=== PATIENT | female | born 1945 | race Caucasian/White ===

== ENCOUNTER → 2016-08-10 10:48 | Outpatient (CLI) | payer MEDICARE, MEDICAID ==
[2016-05-31 15:03] VITALS: BMI 65.2
[~2016-08-10 10:48] MED LIST: ACETAMINOPHEN325 MG PO; ACETAMINOPHEN500 M1 PO; ALTACE10 MG PO; ASPIRIN81 MG PO; BETAPACE 80 MG80 MG PO; BUMEX2 MG PO; CARDIZEM CD240 MG PO; DIABETA5 MG PO; FEMARA2.5 MG PO; GLUCAGON1 MG/KIT IM; GLUCAGON1 MG/KIT SQ; GLUCOVANCE 5/501 TAB PO; HUMALOG 30100 UNITS/ SC; INDOCIN25 MG PO; INSTA-GLUCOSE31 GM PO; KLOR-CON 1010 MEQ PO; METFORMIN HCL500 M1 PO; NEURONTIN 300300 MG PO; NEXIUM40 MG PO; NIFEREX-150 F1 UDCAP PO; NOVOLOG MIX 70/10 ML SQ; PEPCID20 MG PO; PLAVIX75 MG PO; PRAVACHOL20 MG PO; PREDNISONE20 MG PO; PROTONIX40 MG PO; ULTRAM50 MG PO; ZANTAC150 MG PO; ZOFRAN4 MG PO
== END | disposition home or self-care (01) ==
LOC: D.RT 10:48
DX: J44.9 Chronic obstructive pulmonary disease, unspecified (principal)

== ENCOUNTER → 2016-08-11 19:21 | Outpatient (CLI) | payer MEDICARE, MEDICAID ==
[2016-05-31 15:03] VITALS: BMI 65.2
== END | disposition home or self-care (01) ==
LOC: D.SLEEP 19:21
DX: G47.33 Obstructive sleep apnea (adult) (pediatric) (principal)

== ENCOUNTER → 2016-08-30 19:05 | Outpatient (CLI) | payer MEDICARE, MEDICAID ==
[2016-05-31 15:03] VITALS: BMI 65.2
== END | disposition home or self-care (01) ==
LOC: D.SLEEP 19:05
DX: G47.33 Obstructive sleep apnea (adult) (pediatric) (principal)

== ENCOUNTER 2017-01-26 16:13 | Emergency (ER) | payer MEDICARE, MEDICAID ==
[2016-05-31 15:03] VITALS: BMI 65.2
[2017-01-26 18:18] LABS: APPEARANCE CLEAR (CLEAR); BILIRUBIN NEGATIVE (NEGATIVE); COLOR YELLOW (YELLOW); GLUCOSE 1000 mg/dL (NEGATIVE); KETONE NEGATIVE (NEGATIVE); NITRITE NEGATIVE (NEGATIVE); PROTEIN NEGATIVE (NEGATIVE); UROBILINOGEN NORMAL (NORMAL)
[2017-01-26 18:19] LABS: BACTERIA FEW /hpf (NONE SEEN); EPITHELIAL CELLS 0-5 /hpf (0-5); LEUKOCYTE ESTERASE TRACE (NEGATIVE); RED CELLS - URINE OCC /hpf (0-5); WHITE CELLS - URINE 0-5 /hpf (0-5)
[2017-01-26 18:25] LABS: BASOPHILS 0.5 % (0-2); HEMATOCRIT 37.2 % (36.0-48.0); IMMATURE GRANULOCYTES 0.2 % (0-5); MCH 28.2 pg (26.0-34.0); MCHC 32.3 g/dL (31.0-37.0); MCV 87.3 fL (80.0-100.0); MEAN PLATELET VOLUME 9.8 fL (7.4-10.4); MONOCYTES 8.5 % (2-11); NEUTROPHILS 64.8 % (40-80); RBC 4.26 10x6/uL (4.00-5.40); RDW 14.4 % (11.5-14.5); WBC 6.2 10x3/uL (4.8-10.8)
[2017-01-26 18:26] LABS: PLATELET COUNT 157 10x3/uL (130-400)
[2017-01-26 18:41] LABS: ALBUMIN 3.4 g/dL (3.4-5.0); ALKALINE PHOSPHATASE 116 U/L (46-116); ALT (SGPT) 39 U/L (10-68); BILIRUBIN - TOTAL 0.43 mg/dL (0.2-1.3); CARBON DIOXIDE 31.5 mmol/L (21.0-32.0); CHLORIDE - SERUM 97 mmol/L (98-107); CREATININE - SERUM 1.7 mg/dL (0.6-1.3); POTASSIUM - SERUM 3.9 mmol/L (3.5-5.1); PROTEIN - SERUM 7.9 g/dL (6.4-8.2); SODIUM 134 mmol/L (136-145); UREA NITROGEN 28 mg/dL (7-18); eGFR NON AFRICAN AMERICAN 32 mL/min (90-120)
[2017-01-26 18:50] LABS: CREATINE KINASE 81 UL (21-215); PRO BNP 839 pg/mL (0-125)
[2017-01-26 18:59] LABS: CALC OSMOLALITY 282 mosm/kg (275-300); GLUCOSE 252 mg/dL (74-106); TROPONIN-I < 0.017 ng/mL (0.000-0.060)
[2017-01-26 19:09] LABS: INR 1.1 (0.85-1.17)
[2017-01-26 19:10] LABS: APTT 29.1 SECONDS (22.8-39.4)
== END 2017-01-26 21:00 | disposition home or self-care (01) ==
LOC: D.ER 16:13
PROVIDERS: Emergency Medicine; Physician Assistant Medical
DX: K21.9 Gastro-esophageal reflux disease without esophagitis (principal); J44.9 Chronic obstructive pulmonary disease, unspecified; E11.9 Type 2 diabetes mellitus without complications; Z79.4 Long term (current) use of insulin; E66.01 Morbid (severe) obesity due to excess calories; Z99.81 Dependence on supplemental oxygen

== ENCOUNTER 2017-03-18 09:00 | Outpatient (CLI) | payer MEDICARE, MEDICAID ==
[2016-05-31 15:03] VITALS: BMI 65.2
== END 2017-03-18 23:59 | disposition home or self-care (01) ==
LOC: D.MAMMO 09:00
DX: Z12.31 Encounter for screening mammogram for malignant neoplasm of breast (principal)

== ENCOUNTER → 2017-05-17 09:04 | Outpatient (CLI) | payer MEDICARE, MEDICAID ==
[2016-05-31 15:03] VITALS: BMI 65.2
== END | disposition home or self-care (01) ==
LOC: D.US 09:04
DX: R22.9 Localized swelling, mass and lump, unspecified (principal)

== ENCOUNTER → 2017-07-25 16:39 | Outpatient (CLI) | payer MEDICARE, MEDICAID ==
[2016-05-31 15:03] VITALS: BMI 65.2
== END | disposition home or self-care (01) ==
LOC: D.MAMMO 13:30
DX: R59.0 Localized enlarged lymph nodes (principal); N64.4 Mastodynia; Z85.3 Personal history of malignant neoplasm of breast

== ENCOUNTER 2018-02-01 09:17 | Outpatient (CLI) | payer MEDICARE, MEDICAID ==
[~2018-02-01] VITALS: Ht 154.9 cm; Wt 136.4 kg
--- NOTE | ~2018-02-01 | OP ---
PATIENT NAME: HUMA FIELDS MEDICAL RECORD: [id number] :49 LOCATION:D.CAT ADMISSION DATE: SURGEON: RICK SQUIRES MD DATE OF OPERATION: 02/01/2018 PROCEDURES: 1. Left heart catheterization. 2. Selective coronary angiography. 3. Left ventriculogram. INDICATION: Chest pain compatible with angina and coronary artery disease. PROCEDURE IN DETAIL: After informed consent was obtained and after a detailed description of the risks, benefits as well as alternative therapies, the patient elected to proceed with angiogram and heart catheterization. The right radial area was prepped and draped in normal sterile fashion. Right radial artery was cannulated via modified Seldinger technique with placement of 5-Tuvaluan sheath. All catheters exchanged through this sheath. FINDINGS: The left ventriculogram was performed in standard 30-degree CHILDS view, reveals good cardiac wall motion throughout all segments. Overall ejection fraction estimated 60%. SELECTIVE CORONARY ANGIOGRAPHY: 1. Left main is with no significant angiographic disease. 2. Left anterior descending has moderate irregularities, but no flow-limiting stenosis. 3. The left circumflex has moderate irregularities, but no flow-limiting stenosis. 4. Right coronary artery is chronically totally occluded, unchanged from previous angiography. Distal right coronary artery fills via left to right collaterals. 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 Continue medical management of the coronary artery disease and cardiac risk factors. TRANSINT:[id number] Voice Confirmation ID: [id number] DOCUMENT ID: [id number] RICK SQUIRES MD at 1642 CC: [id number] DICTATION DATE: 02/01/18 1243 ALTERATIONS EXPERT: 02/01/18 1258 DEP CLI 02/01/18 [place] [address]
--- NOTE | ~2018-02-01 | HEMODYNAMI ---
PATIENT:HUMA FIELDS MEDICAL RECORD: [id number] : 49 LOCATION:[facility] ADMISSION DATE: 02/01/18 Generatedon:02/01/201812:47 Patient name: HUMA FIELDS Patient #: [id number] SSN: : Date of study: 02/01/2018 Page: Of Hemodynamic Procedure Report Patient Data Patient Demographics Procedure consent was obtained First Name: HUMA Gender: Female Last Name: DIAMOND : 1945 [facility] Initial: COLETTE Age: 73 year(s) Patient #: [id number] Race: Unknown Additional ID: [id number] Contact details Address: [address] [place] [address] ROAD State: [place] City: [place] Zip code: [address] Past Medical History Allergies Allergen Reaction Date Comments Reported Iodine 10/01/2015 Other allergy 10/01/2015 Hydrocodone, Phenergan Iodine 06/02/2016 Other allergy 06/02/2016 Promethazine HCL, Hydrocodone Other allergy 02/01/2018 IODINE, NOR-QD, TEGRETOL, XARELTO Admission Admission Data Admission Date: 02/01/2018 Admission Time: 9:17 Height (in.): 5.1 BSA: 0.37 (m2) Height (cm.): 12.95 BMI: 8109.22 (kg/m2) Weight (lbs.): 300 Weight (kg.): 136.08 Lab Results Lab Result Date: 02/01/2018 Lab Result Time: 0:00 Biochemistry Name Units Result Min Max BUN mg/dl 26 --(----)-* 7 18 Creatinine mg/dl 1.7 --(----)-* 0.6 1.3 CBC Name Units Result Min Max Hemoglobin g/dl 12.6 -*(----)-- 13.5 17.5 Procedure Procedure Types Cath Procedure Diagnostic Procedure LHC LHC w/Coronaries Cardioversion External MURALI Sedation Charges Moderate Sedation up to 30 minutes Procedure Description Procedure Date Procedure Date: 02/01/2018 Procedure Start Time: 12:33 Procedure End Time: 12:43 Procedure Staff Name Function Marcial Calderon MD Performing Physician Gisselle Rangel RT Monitor Sonia Waddell RT Scrub Sinan Cook RN Nurse Max Silver MD Additional personnel Collette Sanchez Associate Director Of Biostatistics Procedure Data Cath Procedure Fluoroscopy Diagnostic fluoroscopy Total fluoroscopy Time: 2.9 time: 2.9 min min Diagnostic fluoroscopy Total fluoroscopy dose: dose: 1008 mGy 1008 mGy Contrast Material Contrast Material Type Amount (ml) Isovue 300 43 Entry Location Entry Primary Successful Side Size Upsize Upsize Entry Closure Bui ccessful Closure Location (Fr) 1 (Fr) 2 (Fr) Remarks Device Remarks Radial Right 6 Fr Mechanical TR artery Short Compression Estimated blood loss: 10 ml Diagnostic catheters Device Type Used For End Catheter Placement DIAGNOSTIC Crumpler 110cm 5 Procedure Fr catheter ([id number]) Procedure Complications No complications Procedure Medications Medication Administration Route Dosage Oxygen etCO2 Nasal cannula 2 l/min Lidocaine 2% added to field 20 Heparin Flush Bag added to field 2 bags (1000units/500ml NS) 0.9% NaCl I.V. 100 ml/hr unlisted medication 30 ml Versed I.V. 1 mg Fentanyl I.V. 50 mcg Radial Cocktail I.A. 1 syringe (Verapomil 2mg/Nitro 400mcg/Heparin 1500units) Versed I.V. 1 mg Fentanyl I.V. 50 mcg Versed I.V. 0.25 mg Fentanyl I.V. 12.5 mcg Hemodynamics Rest BSA: 0.37 (m2) HGB: 12.6 (g/dl) O2 Consumption: Estimated: 26.69 (ml/min) O2 Con sumption indexed: Estimated:72.14 (ml/min/m) Heart Rate: 18 (bpm) Snapshots Pre Cath Intra NCS Post Cath Vital Signs Time Heart Resp SPO2 etCO2 NIBP (mmHg) Rhythm Pain Sedation Rate (ipm) (%) (mmHg) Status Level (bpm) 12:03:21 67 21 95 40.7 176/79(133) NSR 0 (11) 10(A) , No pain 12:07:58 69 26 96 39.9 178/90(123) NSR 0 (11) 10(A) , No pain 12:12:26 68 23 87 38.4 152/84(128) NSR 0 (11) 10(A) , No pain 12:17:07 69 15 94 21 136/57(81) NSR 0 (11) 10(A) , No pain 12:28:25 69 22 96 36.9 217/119(165) NSR 0 (11) 10(A) , No pain 12:33:12 67 14 89 42.9 189/107(159) NSR 0 (11) 9(A) , No pain 12:37:48 70 18 90 39.1 165/83(124) NSR 0 (11) 9(A) , No pain 12:43:36 67 15 92 42.1 186/99(140) NSR 0 (11) 10(A) , No pain Medications Time Medication Route Dose Verified Delivered Reason Notes Effectiveness by by 12:02:06 Oxygen etCO2 2 l/min Marcial Buffie used for Nasal Yumiko Cook RN procedure cannula 12:02:12 Lidocaine 2% added 20ml Marcial Buffie used for to vial Yumiko Cook RN procedure field 12:02:18 Heparin Flush added 2 bags Marcial Buffie used for Bag to Yumiko Cook RN procedure (1000units/500ml field NS) 12:02:31 0.9% NaCl I.V. 100 Marcialradhames Crossie Per ml/hr Yumiko Cook RN physician 12:03:36 visc. lido gargle 30 ml Marcial Buffie Per Yumiko Cook RN physician 12:30:47 Versed I.V. 1 mg Marcial Menon for sedation Yumiko Cook RN 12:30:52 Fentanyl I.V. 50 mcg Marcial Menon for sedation Yumiko Cook RN 12:33:30 Versed I.V. 1 mg Marcial Buffie for sedation Yumiko Cook RN 12:33:34 Fentanyl I.V. 50 mcg Marcial Menon for sedation Yumiko Cook RN 12:37:16 Radial Cocktail I.A. 1 Marcial Ceja for (Verapomil syringe Yumiko Calderon MD vasodilation 2mg/Nitro 400mcg/Heparin 1500units) 12:39:05 Fentanyl I.V. 12.5 Marcial Menon for sedation mcg Yumiko Cook RN 12:39:58 Versed I.V. 0.25 mg Marcial Buffie for sedation Yumiko Cook RN Procedure Log Time Note 11:48:39 Sinan Cook RN sent for patient. Start room use. 11:48:40 Time tracking: Regular hours (M-F 7:00 - 5:00) 11:48:44 Plan of Care:Hemodynamics will remain stable., Cardiac rhythm will remain stable., Comfort level will be maintained., Respiratory function will remain adequate., Patient/ family verbilizes understanding of procedure., Procedure tolerated without complication., Recovers from procedure without complications.. 11:48:46 Signed procedure consent form obtained from patient. 11:49:32 H&P Date Dictated: 01/26/2018 Within 30 days and on chart., H&P Addendum completed by physician on day of procedure. (MUST COMPLETE FOR ALL OUTPATIENTS). 11:49:55 Patient allergic to Other allergyIODINE, NOR-QD, TEGRETOL, XARELTO 11:50:04 Patient Height : 5.1 inches 11:50:08 Patient Weight : 300 lbs 11:53:48 Lab Result : BUN 26 mg/dl 11:53:48 Lab Result : Hemoglobin 12.6 g/dl 11:53:48 Lab Result : Creatinine 1.7 mg/dl 11:55:10 Patient arrived from Pre/Post Procedure Room to [facility] 2. Patient remains on bed/stretcher for procedure. 11:55:12 Warm blankets applied, and jose elias hugger turned on for patient comfort. 11:55:12 Correct patient and procedure confirmed by team. 11:55:12 ECG and BP/O2 sat monitors applied to patient. 12:01:49 Vital chart was started 12:02:06 Oxygen 2 l/min etCO2 Nasal cannula was administered by Sinan Cook RN; used for procedure; 12:02:12 Lidocaine 2% 20ml vial added to field was administered by Sinan Cook RN; used for procedure; 12:02:18 Heparin Flush Bag (1000units/500ml NS) 2 bags added to field was administered by Sinan Cook RN; used for procedure; 12:02:31 0.9% NaCl 100 ml/hr I.V. was administered by Sinan Cook RN; Per physician; 12:03:36 visc. lido 30 ml gargle was administered by Sinan Cook RN; Per physician; 12:04:40 Baseline sample Acquired. 12:04:46 Rhythm: atrial fibrillation 12:04:51 Full Disclosure recording started 12:04:51 Pre-procedure instructions explained to patient. 12:04:52 Pre-op teaching completed and patient verbalized understanding. 12:04:53 Family in patients room. 12:04:55 Patient NPO since Midnight. 12:04:56 Is the patient allergic to Iodine/contrast media? Yes. 12:04:58 Was the patient premedicated? Yes 12:04:59 Is patient on blood thinner?No 12:05:00 Patient diabetic? Yes. 12:05:02 If diabetic: On Metformin? No 12:05:06 Patient not . Patient is over age 55. 12:05:09 Previous problem with sedation/anesthesia? No ? 12:05:10 Snore? Yes 12:05:11 Sleep apnea? Yes 12:05:12 Deviated septum? No 12:05:13 Opens mouth fully? Yes 12:05:14 Sticks out tongue? Yes 12:05:16 Airway obstruction? Yes COPD 12:05:21 Dentures? Yes OUT 12:05:24 Modified Nico's test Ulnar < 7 seconds 12:05:26 Patient pain scale 0/10 ?. 12:05:31 IV patent on arrival in left hand with 0.9% NaCl at O. 12:05:33 Lab results completed and on chart. 12:05:58 Max Silver MD present and monitoring patient for TIVA. 12:06:01 Collette Daniel Refrigerated Cargo Clerk present for MURALI. 12:06:10 Quick Combo opened to sterile field. 12:13:51 --------ALL STOP TIME OUT------ 12:13:52 Final Timeout: patient, procedure, and site verified with staff and physician. All members of the team are in agreement. 12:13:59 Physical assessment completed. ASA score P 2 - A patient with mild systemic disease as per Marcial Calderon MD. 12:14:03 Sedation plan: TIVA Medication:Propofol 12:14:24 Procedure started. 12:15:30 PT. IN SINUS RYTHM WITH PACS 12:15:46 WILL MOVE PATIENT TO BED AND PREP FOR CATH 12:30:47 Versed 1 mg I.V. was administered by Sinan Cook RN; for sedation; 12:30:52 Fentanyl 50 mcg I.V. was administered by Sinan Cook RN; for sedation; 12:31:07 Use device set Radial Dx or PCI 12:31:08 ACIST Syringe (29038) opened to sterile field. 12:31:08 Medline Cath Pack ([id number]) opened to sterile field. 12:31:09 Bag Decanter (2002S) opened to sterile field. 12:31:09 DIAGNOSTIC WIRE .035 260cm J wire (345583) opened to sterile field. 12:31:10 ACIST Hand Control (58959) opened to sterile field. 12:31:10 ACIST Manifold (91186) opened to sterile field. 12:31:11 Tegaderm 4 x 4 (1626W) opened to sterile field. 12:31:12 MBrace Wrist Support ([id number]) opened to sterile field. 12:31:13 NEEDLE Cook 21G 4cm Radial (F69889) opened to sterile field. 12:31:14 TR BAND Large (NAP32TUC) opened to sterile field. 12:31:16 SHEATH 6Fr Prelude Radial ([id number]) opened to sterile field. 12:33:30 Versed 1 mg I.V. was administered by Sinan Cook RN; for sedation; 12:33:34 Fentanyl 50 mcg I.V. was administered by Sinan Cook RN; for sedation; 12:33:34 Local anesthetic to right radial artery with Lidocaine 2% by Marcial Calderon MD.INITIAL ACCESS ONLY 12:34:37 Zero performed for pressure channel P1 12:34:56 A 6 Fr Short sheath was inserted into the Right Radial artery 12:36:39 j wire advanced. 12:36:50 A DIAGNOSTIC Crumpler 110cm 5 Fr catheter (866149) was advanced over the wire and used for Procedure. 12:37:16 Radial Cocktail (Verapomil 2mg/Nitro 400mcg/Heparin 1500units) 1 syringe I.A. was administered by Marcial Calderon MD; for vasodilation; 12:38:30 RCA angiography performed. 12:38:38 Catheter removed. 12:39:05 Fentanyl 12.5 mcg I.V. was administered by Sinan Cook RN; for sedation; 12:39:11 GUIDE 6FR XBLAD 3.5 catheter ([id number]) opened to sterile field. 12:39:33 LCA angiography performed. 12:39:58 Versed 0.25 mg I.V. was administered by Sinan Cook RN; for sedation; 12:40:40 Catheter removed. 12:41:14 TR BAND Standard ([id number]) opened to sterile field. 12:41:38 Sheath removed intact; hemostasis achieved with Mechanical Compression to the Right Radial artery. 12:41:41 Procedure ended.(Physican Out) 12:42:06 Fluoroscopy time 02.90 minutes. 12:42:10 Fluoroscopy dose: 1008 mGy 12:42:10 Flurop Dose total: 1008 12:42:14 Contrast amount:Isovue 300 43ml. 12:42:15 Sharps counted by scrub and verified by R.N. 12:42:18 TR band inflated with 12cc of air. 12:42:19 Insertion/operative site no bleeding no hematoma. 12:42:27 Post Procedure Pulses reassessed and unchanged 12:42:32 Post-procedure physical assessment completed. ASA score P 3 - A patient with severe systemic disease as per Marcial Calderon MD. 12:42:35 Post procedure rhythm: sinus rhythm 12:42:39 Estimated blood loss: 10 ml 12:42:41 Post procedure instruction explained to patient.Patient verbalizes understanding. 12:43:11 Procedure type changed to Cath procedure, Diagnostic procedure, LHC, LHC w/Coronaries, Cardioversion External, MURALI, Sedation Charges, Moderate Sedation up to 30 minutes 12:43:13 Procedure and supply charges have been captured, reviewed, submitted and are correct. 12:43:42 Procedure Complication : No complications 12:43:45 Vital chart was stopped 12:43:45 See physician's report for complete and final results. 12:43:48 Report given to Pre/Post Procedure Room. 12:43:51 Patient transfered to Pre/Post Procedure Room with Stretcher. 12:43:53 Procedure ended. 12:43:53 Full Disclosure recording stopped 12:43:57 End room use (Document Last) Device Usage Item Name Manufacture Quantity Catalog Number Hospital Part Current M inimal Lot# / Charge Number Stock Stock Serial# Code Quick Conkwesto ProspectNow Systems 1 [id number] 809138 499041 181767 5 ACIST Syringe Acist 1 14432 843419 698216 595304 2 0 (72862) Responsible City Medline Cath Cardinal 1 [id number] 859530 61443 345092 5 Pack Health ([id number]) Bag Decanter Microtek 1 2001S 235819 95827 085125 5 (2001S) Medical Inc. DIAGNOSTIC WIRE [place] 1 647818 073125 749216 848334 3 0 .035 260cm J wire (533572) ACIST Hand Acist 1 40930 323899 310457 812551 5 Control (36441) Medical Systems Inc ACIST Manifold Acist 1 78700 478458 235208 773652 5 (94324) Medical Systems Inc Tegaderm 4 x 4 3M 1 1626W 202374 133383 526137 5 (1626W) MBrace Wrist Advanced 1 140-0250-00 783124 78920 813737 5 Support Vascular ([id number]) Dynamics NEEDLE Cook 21G Cook Medical 1 Z63693 137871 541017 062337 5 4cm Radial (O39833) TR BAND Large Terumo 1 XKT30-SJZ 785811 515466 805285 4 0 ([id number]) SHEATH 6Fr Merit 1 [id number] 115392 057023 389114 5 Prelude Radial Medical ([id number]) DIAGNOSTIC Terumo 1 40-0453 110230 083435 841733 5 Crumpler 110cm 5 Fr catheter (355981) GUIDE 6FR XBLAD Cardinal 1 13378480 468911 965639 879778 1 0 3.5 catheter Health ([id number]) TR BAND Terumo 1 OFL58-WLH 014906 986910 942773 4 0 Standard ([id number]) Signature Audit Bentley Stage Time Signature Unsigned Intra-Procedure 02/01/2018 Gisselle Rangel 12:47:49 PM RT(R) Signatures Monitor : Gisselle Rangel Signature : RT Date : Time : [facility] [address] [place] [address]
[2018-02-01] MEDS ORDERED: JARDIANCE25 MG PO (10:01)
[2018-02-01] MEDS ORDERED: GLUCOTROL XL 1010 MG PO (10:02)
[2018-02-01] MEDS ORDERED: CELEXA10 MG PO (10:02)
[2018-02-01] MEDS ORDERED: VALIUM5 MG PO (10:04)
[2018-02-01] MEDS ORDERED: BREO ELLIPTA 21 EACH (10:04)
[2018-02-01 10:05] VITALS: BP 153/82; Ht 154.9 cm; Wt 136.4 kg
[2018-02-01 10:17] LABS: BASOPHILS 0.2 % (0-2); EOSINOPHILS 0 % (0-7); HEMATOCRIT 38.5 % (36.0-48.0); HEMOGLOBIN 12.6 g/dL (12-16); IMMATURE GRANULOCYTES 0.2 % (0-5); LYMPHOCYTES 15.2 % (15-50); MCHC 32.7 g/dL (31.0-37.0); MCV 88.7 fL (80.0-100.0); MEAN PLATELET VOLUME 10.4 fL (7.4-10.4); MONOCYTES 3.4 % (2-11); PLATELET COUNT 148 10x3/uL (130-400); RBC 4.34 10x6/uL (4.00-5.40); RDW 14.1 % (11.5-14.5); WBC 5.1 10x3/uL (4.8-10.8)
[2018-02-01 11:01] LABS: ANION GAP 12.1 mmol/L (8-16); CALCIUM 9.2 mg/dL (8.5-10.1); CARBON DIOXIDE 31.2 mmol/L (21.0-32.0); CREATININE - SERUM 1.7 mg/dL (0.6-1.3); POTASSIUM - SERUM 4.3 mmol/L (3.5-5.1)
== END 2018-02-01 15:22 | disposition home or self-care (01) ==
LOC: D.CATH 09:17
PROVIDERS: Internal Medicine Interventional Cardiology
DX: I25.110 Atherosclerotic heart disease of native coronary artery with unstable angina pectoris (principal)

== ENCOUNTER 2018-06-16 20:47 | Inpatient (IN) | payer MEDICARE, MEDICAID ==
[~2018-06-16] VITALS: Ht 154.9 cm; Wt 135.3 kg
[~2018-06-16 20:47] MED LIST changes: +BREO ELLIPTA 21 EACH; +CELEXA10 MG PO; +GLUCOTROL XL 1010 MG PO; +JARDIANCE25 MG PO; +VALIUM5 MG PO
[2018-06-16 21:24] LABS: BASOPHILS 0.1 % (0-2); EOSINOPHILS 0.1 % (0-7); HEMATOCRIT 38.3 % (36.0-48.0); HEMOGLOBIN 12.4 g/dL (12-16); IMMATURE GRANULOCYTES 0.5 % (0-5); MCH 28.8 pg (26.0-34.0); MCHC 32.4 g/dL (31.0-37.0); MCV 88.9 fL (80.0-100.0); MEAN PLATELET VOLUME 10.7 fL (7.4-10.4); MONOCYTES 3.1 % (2-11); NEUTROPHILS 92.2 % (40-80); RBC 4.31 10x6/uL (4.00-5.40); RDW 14.4 % (11.5-14.5); WBC 7.4 10x3/uL (4.8-10.8)
[2018-06-16 21:29] LABS: APTT 27.8 SECONDS (22.8-39.4); INR 1.3 (0.85-1.17); PROTIME 15.6 SECONDS (11.6-15.0)
[2018-06-16 21:33] LABS: ALBUMIN 2.7 g/dL (3.4-5.0); ALKALINE PHOSPHATASE 205 U/L (46-116); ALT (SGPT) 27 U/L (10-68); BILIRUBIN - TOTAL 0.79 mg/dL (0.2-1.3); CALC OSMOLALITY 292 mosm/kg (275-300); CALCIUM 8.8 mg/dL (8.5-10.1); CHLORIDE - SERUM 99 mmol/L (98-107); POTASSIUM - SERUM 3.6 mmol/L (3.5-5.1); PROTEIN - SERUM 7.3 g/dL (6.4-8.2); SODIUM 138 mmol/L (136-145); UREA NITROGEN 31 mg/dL (7-18); eGFR NON AFRICAN AMERICAN 26 mL/min (90-120)
[2018-06-16 21:34] LABS: GLUCOSE 281 mg/dL (74-106)
[2018-06-16 21:35] LABS: PLATELET COUNT 109 10x3/uL (130-400)
[2018-06-16 21:45] LABS: CKMB 0.9 U/L (0.0-3.6); CREATINE KINASE 103 UL (21-215); PRO BNP 3706 pg/mL (0-125); TROPONIN-I 0.053 ng/mL (0.000-0.060)
[2018-06-16 22:45] LABS: APPEARANCE CLEAR (CLEAR); COLOR YELLOW (YELLOW); NITRITE NEGATIVE (NEGATIVE); PROTEIN 1+ mg/dL (NEGATIVE)
[2018-06-16 22:46] LABS: BACTERIA MANY /hpf (NONE SEEN); BILIRUBIN NEGATIVE (NEGATIVE); EPITHELIAL CELLS 0-5 /hpf (0-5); GLUCOSE 1000 mg/dL (NEGATIVE); KETONE NEGATIVE (NEGATIVE); UROBILINOGEN NORMAL (NORMAL); WHITE CELLS - URINE 25-50 /hpf (0-5)
[2018-06-16 23:30] VITALS: BP 90/49
[2018-06-17 00:30] VITALS: BP 96/36
[2018-06-17] MEDS ORDERED: ACETAMINOPHEN325 MG PO (00:46)
[2018-06-17] MEDS ORDERED: NOVOLIN 70/30 110 ML SC (00:47)
[2018-06-17 02:12] VITALS: BP 85/41; Ht 154.9 cm; Wt 135.3 kg
[2018-06-17 04:58] VITALS: BP 105/38
[2018-06-17 08:21] LABS: BASOPHILS 0.1 % (0-2); EOSINOPHILS 0 % (0-7); HEMATOCRIT 38.6 % (36.0-48.0); HEMOGLOBIN 12.3 g/dL (12-16); IMMATURE GRANULOCYTES 0.2 % (0-5); LYMPHOCYTES 5.9 % (15-50); MCH 28.1 pg (26.0-34.0); MCHC 31.9 g/dL (31.0-37.0); MCV 88.3 fL (80.0-100.0); MEAN PLATELET VOLUME 10.4 fL (7.4-10.4); MONOCYTES 1.1 % (2-11); NEUTROPHILS 92.7 % (40-80); PLATELET COUNT 101 10x3/uL (130-400); RBC 4.37 10x6/uL (4.00-5.40); RDW 14.5 % (11.5-14.5); WBC 9.6 10x3/uL (4.8-10.8)
[2018-06-17 08:34] VITALS: BP 136/77
[2018-06-17 08:44] LABS: ANION GAP 18.6 mmol/L (8-16); CALCIUM 7.9 mg/dL (8.5-10.1); CARBON DIOXIDE 24.7 mmol/L (21.0-32.0); CREATININE - SERUM 1.9 mg/dL (0.6-1.3)
[2018-06-17 08:51] LABS: POTASSIUM - SERUM 4.3 mmol/L (3.5-5.1)
[2018-06-17 15:28] VITALS: BP 120/68
[2018-06-17 21:45] VITALS: BP 157/50
[2018-06-18 04:37] VITALS: BP 148/75
[2018-06-18 07:07] LABS: ANION GAP 16.3 mmol/L (8-16); CARBON DIOXIDE 23.2 mmol/L (21.0-32.0); CREATININE - SERUM 1.4 mg/dL (0.6-1.3); POTASSIUM - SERUM 3.5 mmol/L (3.5-5.1)
[2018-06-18 07:08] LABS: BASOPHILS 0.3 % (0-2); EOSINOPHILS 1.4 % (0-7); HEMATOCRIT 33.2 % (36.0-48.0); HEMOGLOBIN 10.6 g/dL (12-16); IMMATURE GRANULOCYTES 0.9 % (0-5); LYMPHOCYTES 10.9 % (15-50); MCH 27.9 pg (26.0-34.0); MCHC 31.9 g/dL (31.0-37.0); MCV 87.4 fL (80.0-100.0); MEAN PLATELET VOLUME 11.1 fL (7.4-10.4); MONOCYTES 15.9 % (2-11); NEUTROPHILS 70.6 % (40-80); PLATELET COUNT 94 10x3/uL (130-400); RDW 14.4 % (11.5-14.5); WBC 11.2 10x3/uL (4.8-10.8)
[2018-06-18 07:36] LABS: PLATELET ESTIMATE DECREASED
[2018-06-18 09:08] VITALS: BP 125/71
[2018-06-18 16:00] VITALS: BP 131/55
[2018-06-18 20:00] VITALS: BP 126/70
[2018-06-19] VITALS: BP 126/80
[2018-06-19 04:00] VITALS: BP 127/65
[2018-06-19 06:59] LABS: BASOPHILS 0.5 % (0-2); EOSINOPHILS 2.7 % (0-7); HEMATOCRIT 33.6 % (36.0-48.0); HEMOGLOBIN 10.7 g/dL (12-16); IMMATURE GRANULOCYTES 0.6 % (0-5); LYMPHOCYTES 15.4 % (15-50); MCH 28.2 pg (26.0-34.0); MCHC 31.8 g/dL (31.0-37.0); MCV 88.4 fL (80.0-100.0); MEAN PLATELET VOLUME 9.8 fL (7.4-10.4); MONOCYTES 10.4 % (2-11); NEUTROPHILS 70.4 % (40-80); RDW 14.3 % (11.5-14.5)
[2018-06-19 07:05] LABS: PLATELET COUNT 123 10x3/uL (130-400); WBC 8.1 10x3/uL (4.8-10.8)
[2018-06-19 07:11] LABS: ANION GAP 11.8 mmol/L (8-16); CALCIUM 8.2 mg/dL (8.5-10.1); CARBON DIOXIDE 25.7 mmol/L (21.0-32.0); CREATININE - SERUM 1.2 mg/dL (0.6-1.3); POTASSIUM - SERUM 3.5 mmol/L (3.5-5.1)
[2018-06-19 08:24] VITALS: BP 163/79
[2018-06-19 12:00] VITALS: BP 163/85
[2018-06-19 16:13] VITALS: BP 162/82
[2018-06-20] VITALS: BP 149/69
[2018-06-20 05:55] LABS: BASOPHILS 0.8 % (0-2); EOSINOPHILS 2.9 % (0-7); HEMATOCRIT 32.4 % (36.0-48.0); HEMOGLOBIN 10.2 g/dL (12-16); LYMPHOCYTES 17.8 % (15-50); MCH 27.6 pg (26.0-34.0); MCHC 31.5 g/dL (31.0-37.0); MCV 87.6 fL (80.0-100.0); MEAN PLATELET VOLUME 10.5 fL (7.4-10.4); MONOCYTES 13.1 % (2-11); NEUTROPHILS 64.4 % (40-80); PLATELET COUNT 129 10x3/uL (130-400); RDW 14.3 % (11.5-14.5)
[2018-06-20 05:59] LABS: WBC 5.9 10x3/uL (4.8-10.8)
[2018-06-20 06:18] LABS: ANION GAP 13.3 mmol/L (8-16); CALCIUM 8.1 mg/dL (8.5-10.1); CARBON DIOXIDE 24.3 mmol/L (21.0-32.0); POTASSIUM - SERUM 3.6 mmol/L (3.5-5.1)
[2018-06-20 08:15] VITALS: BP 172/94
--- NOTE | 2018-06-20 10:22 | MORECARE ---
CASE MANAGEMENT DISCHARGE SUMMARY PATIENT: HUMA FIELDS UNIT: [id number] ADM DATE: 06/16/18 AGE: 73 : 47 SEX: F ROOM/BED: D.[facility]8 AUTHOR: RE RIVERO PHYSICIAN: REFERRING PHYSICIAN: AYO SPRAGUE MD DATE OF SERVICE: 06/20/18 Discharge Plan Patient Name: HUMA FIELDS Facility: [facility]:[place] : 1945 Planned Disposition: Home Anticipated Discharge Date: Discharge Date: Expected LOS: Initial Reviewer: [email or web address] Initial Review Date: 06/20/2018 Generated: 06/20/18 11:21 am Patient Name: HUMA FIELDS Page 55922 at 1022 All edits/amendments must be made on the electronic document DICTATION DATE: 06/20/18 1021 PLATFORM SUPERVISOR: EDIS 06/20/18 1021 RPT#: [id number] DC DATE: STATUS: ADM IN [facility] [address] [place] [address] END OF REPORT
--- NOTE | 2018-06-20 10:30 | MORECARE ---
CASE MANAGEMENT DISCHARGE SUMMARY PATIENT: HUMA KINGSLEY UNIT: [id number] ADM DATE: 06/16/18 AGE: 73 : 47 SEX: F [facility]OM[facility] AUTHOR: RE RIVERO PHYSICIAN: REFERRING PHYSICIAN: AYO SPRAGUE MD DATE OF SERVICE: 06/20/18 Discharge Plan Patient Name: HUMA KINGSLEY Facility: [facility]:[place] : 1945 Planned Disposition: Home Anticipated Discharge Date: Discharge Date: Expected LOS: Initial Reviewer: [email or web address] Initial Review Date: 06/20/2018 Generated: 06/20/18 11:30 am DCPIA - Discharge Planning Initial Assessment Updated by [email or web address]: Melba Rowland on 06/20/18 10:24 am * Is the patient Alert and Oriented? Yes * How many steps to enter\exit or inside your home? Ramp/0 * PCP Dr. Desai * Pharmacy [facility] * Preadmission Environment Home with Family * ADLs Partial Dependent * Partial ADLs (Assistance needed) Ambulation Dressing Medication Management * Equipment CPAP Glucometer Nebulizer Other Oxygen Walker Wheelchair * Other Equipment Blood pressure monitor Portable oxygen * List name and contact numbers for known caregivers / representatives who currently or will assist patient after discharge: Bernardo Kingsley - - [phone] * Verbal permission to speak to the caregivers and representatives has been obtained from the patient. Yes * Community resources currently utilized Private Duty Care * Please name any agencies selected above. [facility] private duty care [facility] for Nebulizer and [facility] for oxygen and CPAP supplies * Additional services required to return to the preadmission environment? No * Can the patient safely return to the preadmission environment? Yes * Has this patient been hospitalized within the prior 30 days at any hospital? No Last DP export: 06/20/18 9:22 am Patient Name: HUMA KINGSLEY Page 55142 at 1030 All edits/amendments must be made on the electronic document DICTATION DATE: 06/20/18 1030 CAR RESTORER: EDIS 06/20/18 1030 RPT#: [id number] DC DATE: STATUS: ADM IN [facility] [address] [place] [address] END OF REPORT
--- NOTE | 2018-06-20 10:56 | MORECARE ---
CASE MANAGEMENT DISCHARGE SUMMARY PATIENT: HUMA KINGSLEY UNIT: [id number] ADM DATE: 06/16/18 AGE: 73 : 47 SEX: F ROOM/BED: D.2238 AUTHOR: JOSEFADOC PHYSICIAN: REFERRING PHYSICIAN: AYO SPRAGUE MD DATE OF SERVICE: 06/20/18 Discharge Plan Patient Name: HUMA KINGSLEY Facility: [facility]:[place] : 1945 Planned Disposition: Home Anticipated Discharge Date: Discharge Date: Expected LOS: Initial Reviewer: [email or web address] Initial Review Date: 06/20/2018 Generated: 06/20/18 11:56 am Comments DCP- Discharge Planning Updated by [email or web address]: Melba Rowland on 06/20/18 9:[address] Patient Name: HUMA KINGSLEY Admission Status: ER Accout number: [id number] Admission Date: 06-16-2018 : 1945 Admission Diagnosis: Attending: AYO SPRAGUE Current LOS: 4 Anticipated DC Date: Planned Disposition: Home Primary Insurance: [facility] [employer] Discharge Planning Comments: CM met with patient an family to discuss discharge planning. States she lives with her . States she has TLC come every morning Mon through Fri to assist with personal care. Her DIL does her medication management. She uses a walker for ambulation or wheelchair as needed. I discussed availability of rehab, SNF and home health. She states her plan is to return home with her . She declines home health. Denies need for further DME. CM will continue to follow and assist with discharge planning/needs. Construction Tech: Melba Rowland DCPIA - Discharge Planning Initial Assessment Updated by [email or web address]: Melba Rowland on 06/20/18 10:24 am * Is the patient Alert and Oriented? Yes * How many steps to enter\exit or inside your home? Ramp/0 * PCP Dr. Desai * Pharmacy [facility] * Preadmission Environment Home with Family * ADLs Partial Dependent * Partial ADLs (Assistance needed) Ambulation Dressing Medication Management * Equipment CPAP Glucometer Nebulizer Other Oxygen Walker Wheelchair * Other Equipment Blood pressure monitor Portable oxygen * List name and contact numbers for known caregivers / representatives who currently or will assist patient after discharge: Bernardo Kingsley - - [phone] * Verbal permission to speak to the caregivers and representatives has been obtained from the patient. Yes * Community resources currently utilized Private Duty Care * Please name any agencies selected above. [facility] private duty care [facility] for Nebulizer and [facility] for oxygen and CPAP supplies * Additional services required to return to the preadmission environment? No * Can the patient safely return to the preadmission environment? Yes * Has this patient been hospitalized within the prior 30 days at any hospital? No Last DP export: 06/20/18 9:30 am Patient Name: HUMA KINGSLEY Page 36804 at 1056 All edits/amendments must be made on the electronic document DICTATION DATE: 06/20/18 1056 BULK MAIL TECHNICIAN: EDIS 06/20/18 1056 RPT#: [id number] DC DATE: STATUS: ADM IN [facility] [address] [place] [address] END OF REPORT
[2018-06-20 12:07] VITALS: BP 190/73
[2018-06-20 16:08] VITALS: BP 138/80
[2018-06-20 20:00] VITALS: BP 134/74
[2018-06-21] VITALS: BP 104/62
[2018-06-21 04:00] VITALS: BP 118/65
[2018-06-21 06:03] LABS: BASOPHILS 1.8 % (0-2); EOSINOPHILS 3.3 % (0-7); HEMATOCRIT 35.8 % (36.0-48.0); HEMOGLOBIN 11.5 g/dL (12-16); IMMATURE GRANULOCYTES 2.1 % (0-5); LYMPHOCYTES 26.4 % (15-50); MCH 28.3 pg (26.0-34.0); MCHC 32.1 g/dL (31.0-37.0); MCV 88.2 fL (80.0-100.0); MEAN PLATELET VOLUME 10.1 fL (7.4-10.4); MONOCYTES 12.5 % (2-11); NEUTROPHILS 53.9 % (40-80); RBC 4.06 10x6/uL (4.00-5.40); RDW 14.3 % (11.5-14.5); WBC 6.7 10x3/uL (4.8-10.8)
[2018-06-21 06:04] LABS: PLATELET COUNT 188 10x3/uL (130-400)
[2018-06-21 06:22] LABS: ANION GAP 14.6 mmol/L (8-16); CALCIUM 8.9 mg/dL (8.5-10.1); CARBON DIOXIDE 27.1 mmol/L (21.0-32.0); CREATININE - SERUM 1.2 mg/dL (0.6-1.3); POTASSIUM - SERUM 3.7 mmol/L (3.5-5.1)
[2018-06-21 08:34] VITALS: BP 122/67
[2018-06-21 12:19] VITALS: BP 112/55
[2018-06-21 16:54] VITALS: BP 111/51
[2018-06-21 20:00] VITALS: BP 149/57
[2018-06-22 04:00] VITALS: BP 109/52
[2018-06-22 07:26] LABS: ANION GAP 10.1 mmol/L (8-16); CALCIUM 8.5 mg/dL (8.5-10.1); CARBON DIOXIDE 31.4 mmol/L (21.0-32.0); CREATININE - SERUM 1.2 mg/dL (0.6-1.3); POTASSIUM - SERUM 3.5 mmol/L (3.5-5.1)
[2018-06-22 08:21] LABS: HEMATOCRIT 33.1 % (36.0-48.0); HEMOGLOBIN 10.8 g/dL (12-16); LYMPHOCYTES 23.6 % (15-50); MCH 28.8 pg (26.0-34.0); MCHC 32.6 g/dL (31.0-37.0); MCV 88.3 fL (80.0-100.0); MEAN PLATELET VOLUME 9.5 fL (7.4-10.4); NEUTROPHILS 63.6 % (40-80); PLATELET COUNT 181 10x3/uL (130-400); RBC 3.75 10x6/uL (4.00-5.40); RDW 13.8 % (11.5-14.5); WBC 6.7 10x3/uL (4.8-10.8)
[2018-06-22 09:11] VITALS: BP 104/46
[2018-06-22] MEDS ORDERED: FLORAJEN3 CAPS460 MG PO (10:13)
[2018-06-22] MEDS ORDERED: MACROBID100 MG PO (10:14)
--- NOTE | 2018-06-22 11:00 | MORECARE ---
CASE MANAGEMENT DISCHARGE SUMMARY PATIENT: HUMA KINGSLEY UNIT: [id number] ADM DATE: 06/16/18 AGE: 73 : [birth year] SEX: F ROOM/BED: D.2238 AUTHOR: RE RIVERO PHYSICIAN: REFERRING PHYSICIAN: AYO SPRAGUE MD DATE OF SERVICE: 06/22/18 Discharge Plan Patient Name: HUMA KINGSLEY Facility: [facility]:[place] : 1945 Planned Disposition: Home Anticipated Discharge Date: Discharge Date: Expected LOS: Initial Reviewer: [email or web address] Initial Review Date: 06/20/2018 Generated: 06/22/18 12:00 pm Comments DCP- Discharge Planning Updated by [id number]: Melba Louismariya on 06/22/18 9:[address] Patient Name: HUMA KINGSLEY Encounter No: [id number] : 1945 Primary Insurance: [facility] MEDICARE SOLUTIONS Anticipated DC Date: Planned Disposition: Home External Planned Provider: : DCP follow-up note: Patient and family in agreement with discharge plan. Declines home health. States she only needs personal care and [facility] provides that and she will call them when she gets home. The portable oxygen is here per her spouse. No changes to plan. Case management will follow and assist as needed. Melba Louismariya DCP- Discharge Planning Updated by [email or web address]: Melba Rowland on 06/20/18 9:[address] Patient Name: HUMA KINGSLEY Admission Status: ER Accout number: [id number] Admission Date: 06-16-2018 : 1945 Admission Diagnosis: Attending: AYO SPRAGUE Current LOS: 4 Anticipated DC Date: Planned Disposition: Home Primary Insurance: [facility] MEDICARE SOLUTIONS Discharge Planning Comments: CM met with patient an family to discuss discharge planning. States she lives with her . States she has [facility] come every morning Mon through Fri to assist with personal care. Her DIL does her medication management. She uses a walker for ambulation or wheelchair as needed. I discussed availability of rehab, SNF and home health. She states her plan is to return home with her . She declines home health. Denies need for further DME. CM will continue to follow and assist with discharge planning/needs. Global Project Manager: Melba Rowland DCPIA - Discharge Planning Initial Assessment Updated by [id number]: Melba Rowland on 06/20/18 10:24 am * Is the patient Alert and Oriented? Yes * How many steps to enter\exit or inside your home? Ramp/0 * PCP Dr. Desai * Pharmacy [facility] * Preadmission Environment Home with Family * ADLs Partial Dependent * Partial ADLs (Assistance needed) Ambulation Dressing Medication Management * Equipment CPAP Glucometer Nebulizer Other Oxygen Walker Wheelchair * Other Equipment Blood pressure monitor Portable oxygen * List name and contact numbers for known caregivers / representatives who currently or will assist patient after discharge: Bernardo Kingsley - - [phone] * Verbal permission to speak to the caregivers and representatives has been obtained from the patient. Yes * Community resources currently utilized Private Duty Care * Please name any agencies selected above. [facility] private duty care [facility] for Nebulizer and banner [employer] [facility] for oxygen and CPAP supplies * Additional services required to return to the preadmission environment? No * Can the patient safely return to the preadmission environment? Yes * Has this patient been hospitalized within the prior 30 days at any hospital? No Coverage Notice Reviewer: [id number] - Melba Rowland Notice Issued Date-Time: 06/22/2018 10:51 Notice Type: IM Discharge Notice Notice Delivered To: Patient Relationship to Patient: Self City Detective Name: Delivery Method: HAND - Hand Delivered Malissa Days: Prior Verbal Notification: Recipient Understood Notice: Yes Recipient Signature: Yes Med Rec Note Co-signed by Attending: Coverage Notice Comment: IMM delivered, signed, copy given, original placed in MR Last DP export: 06/20/18 9:56 am Patient Name: HUMA KINGSLEY Page 53548 at 1100 All edits/amendments must be made on the electronic document DICTATION DATE: 06/22/18 1100 TICKER MAINTAINER: EDIS 06/22/18 1100 RPT#: [id number] DC DATE: STATUS: ADM IN [facility] [address] [place] [address] END OF REPORT
--- NOTE | 2018-06-23 17:05 | MORECARE ---
CASE MANAGEMENT DISCHARGE SUMMARY PATIENT: HUMA KINGSLEY UNIT: [id number] ADM DATE: 06/16/18 AGE: 73 : [birth year] SEX: F ROOM/BED: D.2238 AUTHOR: RE RIVERO PHYSICIAN: REFERRING PHYSICIAN: AYO SPRAGUE MD DATE OF SERVICE: 06/23/18 Discharge Plan Patient Name: HUMA KINGSLEY Facility: [facility]:[place] : 1945 Planned Disposition: Home Anticipated Discharge Date: Discharge Date: 06/22/2018 Expected LOS: 0 Initial Reviewer: [email or web address] Initial Review Date: 06/20/2018 Generated: 06/23/18 6:05 pm Comments DCP- Discharge Planning Updated by [email or web address]: Melba Louismariya on 06/22/18 9:[address] Patient Name: HUMA KINGSLEY Encounter No: [id number] : 1945 Primary Insurance: [facility] MEDICARE SOLUTIONS Anticipated DC Date: Planned Disposition: Home External Planned Provider: : DCP follow-up note: Patient and family in agreement with discharge plan. Declines home health. States she only needs personal care and [facility] provides that and she will call them when she gets home. The portable oxygen is here per her spouse. No changes to plan. Case management will follow and assist as needed. Melba Louismariya DCP- Discharge Planning Updated by [email or web address]: Melba Rowland on 06/20/18 9:[address] Patient Name: HUMA KINGSLEY Admission Status: ER Accout number: [id number] Admission Date: 06-16-2018 : 1945 Admission Diagnosis: Attending: AYO SPRAGUE Current LOS: 4 Anticipated DC Date: Planned Disposition: Home Primary Insurance: [facility] MEDICARE SOLUTIONS Discharge Planning Comments: CM met with patient an family to discuss discharge planning. States she lives with her . States she has [facility] come every morning Mon through Fri to assist with personal care. Her DIL does her medication management. She uses a walker for ambulation or wheelchair as needed. I discussed availability of rehab, SNF and home health. She states her plan is to return home with her . She declines home health. Denies need for further DME. CM will continue to follow and assist with discharge planning/needs. Newsroom Intern: Melba Rowland DCPIA - Discharge Planning Initial Assessment Updated by [email or web address]: Melba Rowland on 06/20/18 10:24 am * Is the patient Alert and Oriented? Yes * How many steps to enter\exit or inside your home? Ramp/0 * PCP Dr. Desai * Pharmacy [facility] * Preadmission Environment Home with Family * ADLs Partial Dependent * Partial ADLs (Assistance needed) Ambulation Dressing Medication Management * Equipment CPAP Glucometer Nebulizer Other Oxygen Walker Wheelchair * Other Equipment Blood pressure monitor Portable oxygen * List name and contact numbers for known caregivers / representatives who currently or will assist patient after discharge: Bernardo Kingsley - - [phone] * Verbal permission to speak to the caregivers and representatives has been obtained from the patient. Yes * Community resources currently utilized Private Duty Care * Please name any agencies selected above. [facility] private duty care [facility] for Nebulizer and [facility] for oxygen and CPAP supplies * Additional services required to return to the preadmission environment? No * Can the patient safely return to the preadmission environment? Yes * Has this patient been hospitalized within the prior 30 days at any hospital? No Coverage Notice Reviewer: [id number] - Melba Rowland Notice Issued Date-Time: 06/22/2018 10:51 Notice Type: IM Discharge Notice Notice Delivered To: Patient Relationship to Patient: Self Vice President Mission Integration Name: Delivery Method: HAND - Hand Delivered Malissa Days: Prior Verbal Notification: Recipient Understood Notice: Yes Recipient Signature: Yes Med Rec Note Co-signed by Attending: Coverage Notice Comment: IMM delivered, signed, copy given, original placed in MR Last DP export: 06/22/18 10:00 a Patient Name: HUMA KINGSLEY Page 50433 at 1705 All edits/amendments must be made on the electronic document DICTATION DATE: 06/23/181703 TARIFF COMPILING CLERK: EDIS 06/23/181703 RPT#: [id number] DC DATE:06/22/18 STATUS: DIS IN [facility] [address] [place] [address] END OF REPORT
== END 2018-06-22 12:03 | disposition home or self-care (01) | DRG 871 ==
LOC: D.ER 20:47 → D.MS 23:06 → D.EDHOLD 23:06 → D.MS 23:45
PROVIDERS: Family Medicine; ADMIT Internal Medicine Nephrology
DX: A41.9 Sepsis, unspecified organism (principal); R65.21 Severe sepsis with septic shock; N39.0 Urinary tract infection, site not specified; N17.9 Acute kidney failure, unspecified; E11.9 Type 2 diabetes mellitus without complications; I25.10 Atherosclerotic heart disease of native coronary artery without angina pectoris; I48.91 Unspecified atrial fibrillation; J44.9 Chronic obstructive pulmonary disease, unspecified; K21.9 Gastro-esophageal reflux disease without esophagitis; N18.9 Chronic kidney disease, unspecified

== ENCOUNTER 2018-10-23 08:00 | Outpatient (CLI) | payer MEDICARE, MEDICAID ==
[2018-06-17 02:12] VITALS: BMI 56.3
[~2018-10-23 08:00] MED LIST changes: +FLORAJEN3 CAPS460 MG PO; +MACROBID100 MG PO; +NOVOLIN 70/30 110 ML SC
== END 2018-10-23 09:00 | disposition home or self-care (01) ==
LOC: D.MAMMO 08:00
PROVIDERS: ATTEND Family Medicine
DX: Z12.31 Encounter for screening mammogram for malignant neoplasm of breast (principal)

== ENCOUNTER 2019-08-31 09:46 | Inpatient (IN) | payer MEDICARE, MEDICAID ==
[~2019-08-31] VITALS: Ht 154.9 cm; Wt 135.2 kg
[2019-08-31 10:34] LABS: BASOPHILS 0.5 % (0-2); EOSINOPHILS 3.2 % (0-7); HEMATOCRIT 36.6 % (36.0-48.0); HEMOGLOBIN 11.1 g/dL (12-16); IMMATURE GRANULOCYTES 0.2 % (0-5); LYMPHOCYTES 14.4 % (15-50); MCH 27.4 pg (26.0-34.0); MCHC 30.3 g/dL (31.0-37.0); MCV 90.4 fL (80.0-100.0); MEAN PLATELET VOLUME 10.2 fL (7.4-10.4); MONOCYTES 11.8 % (2-11); NEUTROPHILS 69.9 % (40-80); PLATELET COUNT 174 10x3/uL (130-400); RBC 4.05 10x6/uL (4.00-5.40); RDW 15.3 % (11.5-14.5); WBC 6.3 10x3/uL (4.8-10.8)
[2019-08-31 10:44] LABS: CALC OSMOLALITY 282 mosm/kg (275-300); CALCIUM 8.4 mg/dL (8.5-10.1); CARBON DIOXIDE 28.4 mmol/L (21.0-32.0); CHLORIDE - SERUM 96 mmol/L (98-107); CREATININE - SERUM 2.3 mg/dL (0.6-1.3); POTASSIUM - SERUM 5.7 mmol/L (3.5-5.1); SODIUM 129 mmol/L (136-145); UREA NITROGEN 52 mg/dL (7-18); eGFR NON AFRICAN AMERICAN 22 mL/min (90-120)
[2019-08-31 10:45] LABS: GLUCOSE 270 mg/dL (74-106)
[2019-08-31 10:58] LABS: APTT 30.5 SECONDS (22.8-39.4); INR 1.2 (0.85-1.17); PROTIME 15.1 SECONDS (11.6-15.0)
[2019-08-31 10:59] LABS: ALKALINE PHOSPHATASE 130 U/L (30-120); ALT (SGPT) 18 U/L (10-68); BILIRUBIN - TOTAL 0.41 mg/dL (0.2-1.3); CREATINE KINASE 82 UL (21-215); D-DIMER-QUANTITATIVE 1.55 ug/mLFEU (0.20-0.54); PRO BNP 1544 pg/mL (0-125); PROTEIN - SERUM 7.6 g/dL (6.4-8.2); TROPONIN-I < 0.017 ng/mL (0.000-0.060)
[2019-08-31 11:30] VITALS: BP 136/54
--- NOTE | 2019-08-31 13:32 | NUR ---
1328 PM REPORT GIVEN TO GARFIELD VUONG ON MED II BY GARFIELD GONZÁLES
[2019-08-31 14:09] LABS: % SATURATION 17 % (15-55); IRON 60 ug/dl (35-150); TOTAL IRON BIND CAPACITY 343 ug/dl (260-445); UNSAT IRON BIND CAPACITY 283 ug/dl (150-375)
--- NOTE | 2019-08-31 14:10 | NUR ---
[facility]SP[facility] HERE WITH PATIENT STABLE AT TIME OF DEPARTURE.
[2019-08-31 14:38] LABS: MAGNESIUM - SERUM 2.7 mg/dL (1.8-2.4)
[2019-08-31 15:46] VITALS: BP 135/58; BMI 56.4
[2019-08-31 16:37] VITALS: BP 128/60
--- NOTE | 2019-08-31 17:06 | NUR ---
16F BERNAL PLACED USING STERILT TECHNIQUE. ALL CONTENTS OF KIT UTILIZED. SPECIMEN SENT TO LAB PER ORDERS.
[2019-08-31 17:44] LABS: BILIRUBIN NEGATIVE (NEGATIVE); GLUCOSE 500 mg/dL (NEGATIVE); KETONE NEGATIVE (NEGATIVE); NITRITE NEGATIVE (NEGATIVE); UROBILINOGEN NORMAL (NORMAL)
[2019-08-31 17:45] LABS: BACTERIA FEW /hpf (NEGATIVE); EPITHELIAL CELLS OCC /hpf (0-5); RED CELLS - URINE OCC /hpf (0-5); WHITE CELLS - URINE 0-5 /hpf (NEGATIVE)
[2019-08-31 20:00] VITALS: BP 105/49
--- NOTE | 2019-08-31 21:12 | NUR ---
LYING QUEITLY WITH NO DISTRESS NOTED. RESP UNALBORED. O2 @ 2L PER NC ON.SL TO LEFT WRIST INTACT WITHOUT REDNESS OR EDEMA NOTED. CL IN REACH
[2019-09-01] VITALS: BP 110/46
--- NOTE | 2019-09-01 02:19 | NUR ---
I have reviewed this patient and I concur with the Shift Assessment completed by the Licensed Practical Nurse today this shift.
[2019-09-01 04:00] VITALS: BP 105/47
--- NOTE | 2019-09-01 08:00 | NUR ---
ALERT AND ORIENTED X4. O2 2L N/C ADN WEARS C-PAP FROM HOME PRN. LUNGS CTA BUT DIMINISHED X4 CAP REFILL <3 SEC. V/S AND BLOOD SUGAR STABLE BUT STATES FEELS LIGHT HEADED AT TIMES. IV TO RT. LEFT CHEST S/L WITH NO S/S OF INFECTION/INFILTRATION. PANNUS ABDOMEN WITH SKIN INTACT. AMBULATES WITH R/WALDER TO BSC WITH SBA. ENCOURAGED TO USE CALL LIGHT FOR ASSIST.
[2019-09-01 10:28] VITALS: Ht 154.9 cm; Wt 135.2 kg
[2019-09-01 10:59] LABS: BASOPHILS 0.3 % (0-2); EOSINOPHILS 1.5 % (0-7); HEMATOCRIT 35.9 % (36.0-48.0); HEMOGLOBIN 10.7 g/dL (12-16); IMMATURE GRANULOCYTES 0.1 % (0-5); MCH 27.3 pg (26.0-34.0); MCHC 29.8 g/dL (31.0-37.0); MCV 91.6 fL (80.0-100.0); MEAN PLATELET VOLUME 10.2 fL (7.4-10.4); MONOCYTES 10.4 % (2-11); NEUTROPHILS 74.7 % (40-80); PLATELET COUNT 171 10x3/uL (130-400); RBC 3.92 10x6/uL (4.00-5.40); RDW 15.1 % (11.5-14.5); WBC 6.8 10x3/uL (4.8-10.8)
[2019-09-01 11:39] LABS: ALBUMIN 3.2 g/dL (3.4-5.0); ANION GAP 11.6 mmol/L (8-16); BILIRUBIN - TOTAL 0.56 mg/dL (0.2-1.3); CALCIUM 8.9 mg/dL (8.5-10.1); CARBON DIOXIDE 33.1 mmol/L (21.0-32.0); CREATININE - SERUM 1.9 mg/dL (0.6-1.3); POTASSIUM - SERUM 5.7 mmol/L (3.5-5.1); PROTEIN - SERUM 7.2 g/dL (6.4-8.2)
[2019-09-01 12:01] VITALS: BP 139/62
[2019-09-01 17:17] VITALS: BP 131/58
[2019-09-01 19:18] VITALS: BP 107/35
--- NOTE | 2019-09-01 20:04 | NUR ---
AWAKE,ALERT.NO COMPALITNS VOICED. O2 @ 2L PER NC NO DISTRESS NOTED. SL TO LEFT CHEST AND LFA INTACT WITHOUT REDNESS OR EDEMA NOTED. BERNAL PATENT AND DRAINING. CL IN REACH
--- NOTE | 2019-09-02 03:00 | NUR ---
I have reviewed this patient and I concur with the Shift Assessment completed by the Licensed Practical Nurse today this shift.
[2019-09-02 04:02] VITALS: BP 116/51
[2019-09-02 05:50] LABS: BASOPHILS 0.3 % (0-2); EOSINOPHILS 1.6 % (0-7); HEMATOCRIT 35.7 % (36.0-48.0); HEMOGLOBIN 11.2 g/dL (12-16); IMMATURE GRANULOCYTES 0.3 % (0-5); LYMPHOCYTES 14.1 % (15-50); MCHC 31.4 g/dL (31.0-37.0); MEAN PLATELET VOLUME 10.1 fL (7.4-10.4); MONOCYTES 14.5 % (2-11); NEUTROPHILS 69.2 % (40-80); PLATELET COUNT 172 10x3/uL (130-400); RDW 15.1 % (11.5-14.5); WBC 6.9 10x3/uL (4.8-10.8)
[2019-09-02 05:56] LABS: MCV 89.3 fL (80.0-100.0)
[2019-09-02 06:05] LABS: ALBUMIN 3.1 g/dL (3.4-5.0); ANION GAP 11.1 mmol/L (8-16); BILIRUBIN - TOTAL 0.73 mg/dL (0.2-1.3); CALCIUM 9.3 mg/dL (8.5-10.1); CARBON DIOXIDE 32.4 mmol/L (21.0-32.0); PROTEIN - SERUM 7.9 g/dL (6.4-8.2)
[2019-09-02 06:06] LABS: CREATININE - SERUM 1.4 mg/dL (0.6-1.3); POTASSIUM - SERUM 4.5 mmol/L (3.5-5.1)
--- NOTE | 2019-09-02 07:44 | NUR ---
ALERT AND ORIENTED X4. PT UP WITH ASSSIT X1 AND WALKER. UP TO CHAIR AT THIS TIME FOR BREAKFAST. O2 2L N/C AND WEARS C-PAP PRN. ABDOMEN OBESE WITH PANNUS WITH SKIN INTACT. SCD'S ON WHILE IN BED. BERNAL CATH PATENT WITH CLEAR DINA URINE. IV S/L TO LEFT CHEST WITH NO S/S OF INFECTION/INFILTRATION. LUNGS CTA BUT DIMINISHED X4 POSTERIOR. HRRR WITH TRACE EDEMA TO BLE. DYSPNEA NOTED WITH MINIMAL EXERTION. ENCOURAGED TO USE CALL LIGHT FOR ASSSIT.
[2019-09-02 09:22] VITALS: BP 151/58
[2019-09-02 13:57] VITALS: BP 148/71
[2019-09-02 16:42] VITALS: BP 124/46
[2019-09-02 20:00] VITALS: BP 121/48
--- NOTE | 2019-09-02 22:04 | NUR ---
RESTING QUEITLY WITH NO DISTRESS NOTED. O2 @ 2L PER NC ON. RESP UNLABORED. IV TO LFA INTACT WIHTOUT REDNESS OR EDEMA NOTED. AT BEDSIDE. CL IN REACH
--- NOTE | 2019-09-03 01:48 | NUR ---
I have reviewed this patient and I concur with the Shift Assessment completed by the Licensed Practical Nurse today this shift.
[2019-09-03 04:00] VITALS: BP 139/62
[2019-09-03 05:02] LABS: BASOPHILS 0.2 % (0-2); EOSINOPHILS 2.1 % (0-7); HEMATOCRIT 34.7 % (36.0-48.0); HEMOGLOBIN 10.6 g/dL (12-16); IMMATURE GRANULOCYTES 0.2 % (0-5); LYMPHOCYTES 17.4 % (15-50); MCH 27.2 pg (26.0-34.0); MCHC 30.5 g/dL (31.0-37.0); MEAN PLATELET VOLUME 10.1 fL (7.4-10.4); NEUTROPHILS 67.1 % (40-80); PLATELET COUNT 157 10x3/uL (130-400); RDW 14.9 % (11.5-14.5); WBC 8.2 10x3/uL (4.8-10.8)
[2019-09-03 05:21] LABS: ALBUMIN 2.9 g/dL (3.4-5.0); ANION GAP 9.6 mmol/L (8-16); BILIRUBIN - TOTAL 0.69 mg/dL (0.2-1.3); CALCIUM 9.1 mg/dL (8.5-10.1); CARBON DIOXIDE 34.3 mmol/L (21.0-32.0); CREATININE - SERUM 1.4 mg/dL (0.6-1.3); POTASSIUM - SERUM 3.9 mmol/L (3.5-5.1); PROTEIN - SERUM 7.7 g/dL (6.4-8.2)
[2019-09-03 08:55] VITALS: BP 131/57
[2019-09-03 11:51] VITALS: BP 141/99
--- NOTE | 2019-09-03 12:16 | EC ---
PATIENT:HUMA FIELDS DATE OF SERVICE: 08/31/19 SEX: F MEDICAL RECORD: [id number] DATE OF : [birth year] LOCATION:D[facility] AGE OF PATIENT: 74 ADMISSION DATE: 08/31/19 REFERRING PHYSICIAN: INTERPRETING PHYSICIAN: NICOLLE MARKHAM MD ECHOCARDIOGRAM REPORT ECHO CHARGES 5 ECHO LIMITED Date: 09/01/19 CLINICAL DIAGNOSIS: DYSPNEA HX CAD/STENT/HTN DYSPNEA ECHOCARDIOGRAPHIC MEASUREMENTS (adult normal given) AC root (d.<3.7cm) 3.9 cm LV Septum d (<1.2 cm> 1.8 cm Valve Excursion 2.3 cm LV Septum (systole) 2.2 cm Left Atria (s.<4.0cm> 4.8 cm LVPW d(<1.2cm) 2.2 cm RV (d.<2.3cm) cm LVPW (sytole) 2.5 cm LV diastole(<5.6CM) 5.2 cm MV E-F(>70mm/sec) cm LV systole 2.9 cm LVOT Diameter 2.3 cm MV exc.(>10mm) 1.3 cm Est.ejection fraction (50-75%) % DOPPLER: LVIT cm/sec A cm/sec E cm/sec LA cm/sec RVSP mmHg LVOT cm/sec AOP1/2T m/s Asc. Ao cm/sec RVOT cm/sec RA cm/sec PA cm/sec AV Gradient Peak mmHg AV Mean mmHg AV Area cm MV Gradient Peak mmHg MV Mean mmHg MV Area cm COMMENTS: Vice President Global Digital Marketing: 2 NEETU WHITE Radio Commentator: 3 Dr. Jensen TAPE# PACS Pericardial Effusion N DATE OF SERVICE: Adequate 2D, color flow imaging, spectral Doppler, and M-Mode. LVH is present. LV internal dimensions are normal. LV wall motion is normal. EF is greater than or equal to 55%. Aortic valve is tricuspid. No significant stenosis by Doppler interrogation. Left atrium dilated at 4.8 cm. Mitral valve shows no prolapse. Trace MR. Right-sided chambers appear grossly normal. Mild TR. ECHOCARDIOGRAM REPORT [id number] HUMA FIELDS TRANSINT:[id number] Voice Confirmation ID: [id number] DOCUMENT ID: [id number] NICOLLE MARKHAM MD at 1216 CC: [id number] DICTATION DATE: 09/02/19 1024 NURSING PROFESSOR: 09/02/19 1218 ADM IN [facility] [address] [place] [id number]
--- NOTE | 2019-09-03 12:43 | NUR ---
Rehab Prescreening Consult recieved and the chart has been reviewed. She is [facility] managed Medicare and will require a preauth for the ARU. She has a PT eval and an OT eval pending. [facility] will require both prior to submitting information for their review. Linnea Fields RN Clinical liaison, rehab
--- NOTE | 2019-09-03 13:04 | NUR ---
Nutrition follow-up: Diet: Renal PO intake ~65% of last 9 meals Labs reviewed WT: 297# PO intake good at this time RDN following.
--- NOTE | 2019-09-03 14:55 | MORECARE ---
CASE MANAGEMENT DISCHARGE SUMMARY PATIENT: HUMA FIELDS UNIT: [id number] ADM DATE: 08/31/19 AGE: 74 : [birth year] SEX: F ROOM/BED: D.2204 AUTHOR: RE RIVERO PHYSICIAN: REFERRING PHYSICIAN: ROBBY ANDERSON MD DATE OF SERVICE: 09/03/19 Discharge Plan Patient Name: HUMA FIELDS [facility] [facility] 1945 Planned Disposition: Home or Self Care Anticipated Discharge Date: Discharge Date: Expected LOS: Initial Reviewer: [email or web address] Initial Review Date: 08/31/2019 Generated: 09/03/19 3:54 pm DCPIA - Discharge Planning Initial Assessment Updated by [id number]: Adenike Bailey on 09/03/19 2:54 pm * Is the patient Alert and Oriented? Yes * How many steps to enter\exit or inside your home? ramp * PCP HEARD * Pharmacy [facility] * Preadmission Environment Home with Family * ADLs Independent * Equipment CPAP Nebulizer Oxygen Rolling Walker * List name and contact numbers for known caregivers / representatives who currently or will assist patient after discharge: ROCÍO (SPOUSE) [phone] * Verbal permission to speak to the caregivers and representatives has been obtained from the patient. N/A * Community resources currently utilized Advantage Program * Please name any agencies selected above. [facility] * Additional services required to return to the preadmission environment? No * Can the patient safely return to the preadmission environment? Yes * Has this patient been hospitalized within the prior 30 days at any hospital? No Patient Name: HUMA FIELDS Page 37200 at 1455 All edits/amendments must be made on the electronic document DICTATION DATE: 09/03/191453 CHANGE OF ADDRESS CLERK: EDIS 09/03/191453 RPT#: [id number] DC DATE: STATUS: ADM IN [facility] [address] [place] [address] END OF REPORT
--- NOTE | 2019-09-03 15:05 | MORECARE ---
CASE MANAGEMENT DISCHARGE SUMMARY PATIENT: HUMA FIELDS UNIT: [id number] ADM DATE: 08/31/19 AGE: 74 : [birth year] SEX: F ROOM/BED: D.2204 AUTHOR: RE RIVERO PHYSICIAN: REFERRING PHYSICIAN: ROBBY ANDERSON MD DATE OF SERVICE: 09/03/19 Discharge Plan Patient Name: HUMA FIELDS Facility: [facility]:[place] : 1945 Planned Disposition: Home or Self Care Anticipated Discharge Date: Discharge Date: Expected LOS: Initial Reviewer: [email or web address] Initial Review Date: 08/31/2019 Generated: 09/03/19 4:04 pm Comments DCP- Discharge Planning Updated by [email or web address]: Adenike Bailey on 09/03/19 1:[address] Patient Name: HUMA FIELDS Admission Status: ER Accout number: [id number] Admission Date: 08-31-2019 : 1945 Admission Diagnosis:HEART FAILURE, UNSPECIFIED Attending: ROBBY ANDERSON Current LOS: 3 Anticipated DC Date: Planned Disposition: Home or Self Care Primary Insurance: [facility] MEDICARE SOLUTIONS Discharge Planning Comments: CM met with patient to complete initial dc planning assessment. CM educated patient on the CM role and verbal consent given by patient to complete assessment. Patient lives at home with her family where she is independent with her care. At discharge patient plans to return home and feels this is a safe discharge. She has a ramp at home, Bernardo will be her route driver salesperson home. CM discussed availability of home health, rehab services, and medical equipment. She said that she has a walker, CPAP, O2, Neb at home. She get her stuff from [facility]. She has [facility] that comes 3 hours a day every day. She denies any other needs. [facility] served and explained. Patient denied known discharge needs at this time. CM will continue to follow and will assist as needed with dc plans/needs. Special Machine Stitcher: Adenike Bailey DCPIA - Discharge Planning Initial Assessment Updated by [email or web address]: Adenike Bailey on 09/03/19 2:54 pm * Is the patient Alert and Oriented? Yes * How many steps to enter\exit or inside your home? ramp * PCP HEARD * Pharmacy [facility] * Preadmission Environment Home with Family * ADLs Independent * Equipment CPAP Nebulizer Oxygen Rolling Walker * List name and contact numbers for known caregivers / representatives who currently or will assist patient after discharge: BERNARDO (SPOUSE) [phone] * Verbal permission to speak to the caregivers and representatives has been obtained from the patient. N/A * Community resources currently utilized Advantage Program * Please name any agencies selected above. [facility] * Additional services required to return to the preadmission environment? No * Can the patient safely return to the preadmission environment? Yes * Has this patient been hospitalized within the prior 30 days at any hospital? No Coverage Notice Reviewer: [id number] Bailey Notice Issued Date-Time: 09/03/2019 14:50 Notice Type: IM Discharge Notice Notice Delivered To: Patient Relationship to Patient: Correction Officer Penitentiary Name: Delivery Method: HAND - Hand Delivered Malissa Days: Prior Verbal Notification: Recipient Understood Notice: Yes Recipient Signature: Yes Med Rec Note Co-signed by Attending: Coverage Notice Comment: Reviewer: [id number] Bailey Notice Issued Date-Time: 09/03/2019 14:50 Notice Type: Patient Choice Letter Notice Delivered To: Patient Relationship to Patient: Correction Officer Penitentiary Name: Delivery Method: HAND - Hand Delivered Malissa Days: Prior Verbal Notification: Recipient Understood Notice: Yes Recipient Signature: Yes Med Rec Note Co-signed by Attending: Coverage Notice Comment: curtis with [facility] Last DP export: 09/03/19 1:55 p Patient Name: HUMA FIELDS Page [phone] at 1505 All edits/amendments must be made on the electronic document DICTATION DATE: 09/03/19 1504 CARBIDE DIE MAKER: EDIS 09/03/19 1504 RPT#: [id number] DC DATE: STATUS: ADM IN [facility] [address] [place] [address] END OF REPORT
[2019-09-03 15:26] VITALS: BP 140/77
--- NOTE | 2019-09-03 16:00 | NUR ---
DC BERNAL CATH AT THIS TIME WITH 900 ML NOTED TO COLLECTION BAG. NO C/O NOTED. C/L IN REACH AT BEDSIDE.
--- NOTE | 2019-09-03 16:57 | NUR ---
I have reviewed this patient and I concur with the Shift Assessment completed by the Licensed Practical Nurse today this shift.
--- NOTE | 2019-09-03 19:25 | NUR ---
SUPINE IN BED, A&O X 4. FAMILY AT BEDSIDE. DENIES PAIN. TEMP 97.3F TEMPORAL. PT REPORTS VOIDING. SCDS IN USE, CL IN REACH, NO FURTHER NEEDS VOICED AT THIS TIME.
[2019-09-03 20:29] VITALS: BP 124/49
--- NOTE | 2019-09-03 22:21 | NUR ---
I have reviewed this patient and I concur with the Shift Assessment completed by the Licensed Practical Nurse today this shift.
[2019-09-04 00:25] VITALS: BP 128/72
[2019-09-04 04:29] LABS: HEMATOCRIT 36.9 % (36.0-48.0); HEMOGLOBIN 11.4 g/dL (12-16); LYMPHOCYTES 16.6 % (15-50); MCH 26.8 pg (26.0-34.0); MCHC 30.9 g/dL (31.0-37.0); MEAN PLATELET VOLUME 9.9 fL (7.4-10.4); NEUTROPHILS 70.1 % (40-80); PLATELET COUNT 177 10x3/uL (130-400); RBC 4.25 10x6/uL (4.00-5.40); RDW 14.4 % (11.5-14.5); WBC 8.1 10x3/uL (4.8-10.8)
[2019-09-04 04:32] LABS: MCV 86.8 fL (80.0-100.0)
[2019-09-04 05:48] VITALS: BP 150/70
[2019-09-04 06:25] LABS: ALBUMIN 2.6 g/dL (3.4-5.0); ANION GAP 11.2 mmol/L (8-16); BILIRUBIN - TOTAL 0.71 mg/dL (0.2-1.3); CARBON DIOXIDE 32.3 mmol/L (21.0-32.0); CREATININE - SERUM 1.2 mg/dL (0.6-1.3); POTASSIUM - SERUM 3.5 mmol/L (3.5-5.1); PROTEIN - SERUM 7.4 g/dL (6.4-8.2)
--- NOTE | 2019-09-04 07:45 | NUR ---
REC'D IN BED AWAKE AND ALERT. RESP EVEN AND UNLABORED WITH CPAP IN USE AT THIS TIME. NO C/O NOTED OR VOICED. CAN VOICE NEEDS AND WANTS. ASSESSMENT COMPLETED. C/L IN REACH AT BEDSIDE.
[2019-09-04 08:46] VITALS: BP 119/57
--- NOTE | 2019-09-04 10:52 | NUR ---
DC HOME AT THIS TIME VOICE UNDERSTANDING OF DC ORDERS WITH AT BEDSIDE AND VOICING UNDERSTANDING WELL. STABEL CONDITION UPON DEPARTURE.
--- NOTE | 2019-09-04 13:11 | MORECARE ---
CASE MANAGEMENT DISCHARGE SUMMARY PATIENT: HUMA FIELDS UNIT: [id number] ADM DATE: 08/31/19 AGE: 74 : [birth year] SEX: F ROOM/BED: D.2204 AUTHOR: RE RIVERO PHYSICIAN: REFERRING PHYSICIAN: ROBBY ANDERSON MD DATE OF SERVICE: 09/04/19 Discharge Plan Patient Name: HUMA FIELDS Facility: [facility]:[place] : 1945 Planned Disposition: Home or Self Care Anticipated Discharge Date: Discharge Date: 09/04/2019 Expected LOS: 0 Initial Reviewer: [email or web address] Initial Review Date: 08/31/2019 Generated: 09/04/19 2:11 pm Comments DCP- Discharge Planning Updated by [id number]: Adenike Bailey on 09/03/19 1:[address] Patient Name: HUMA FIELDS Admission Status: ER Accout number: [id number] Admission Date: 08-31-2019 : 1945 Admission Diagnosis:HEART FAILURE, UNSPECIFIED Attending: ROBBY ANDERSON Current LOS: 3 Anticipated DC Date: Planned Disposition: Home or Self Care Primary Insurance: [facility] MEDICARE SOLUTIONS Discharge Planning Comments: CM met with patient to complete initial dc planning assessment. CM educated patient on the CM role and verbal consent given by patient to complete assessment. Patient lives at home with her family where she is independent with her care. At discharge patient plans to return home and feels this is a safe discharge. She has a ramp at home, Bernardo will be her electric lift truck driver home. CM discussed availability of home health, rehab services, and medical equipment. She said that she has a walker, CPAP, O2, Neb at home. She get her stuff from [facility]. She has [facility] that comes 3 hours a day every day. She denies any other needs. [facility] served and explained. Patient denied known discharge needs at this time. CM will continue to follow and will assist as needed with dc plans/needs. Chief Electrician: Adenike Bailey DCPIA - Discharge Planning Initial Assessment Updated by [email or web address]: Adenike Bailey on 09/03/19 2:54 pm * Is the patient Alert and Oriented? Yes * How many steps to enter\exit or inside your home? ramp * PCP HEARD * [facility] * Preadmission Environment Home with Family * ADLs Independent * Equipment CPAP Nebulizer Oxygen Rolling Walker * List name and contact numbers for known caregivers / representatives who currently or will assist patient after discharge: BERNARDO (SPOUSE) [phone] * Verbal permission to speak to the caregivers and representatives has been obtained from the patient. N/A * Community resources currently utilized Advantage Program * Please name any agencies selected above. [facility] * Additional services required to return to the preadmission environment? No * Can the patient safely return to the preadmission environment? Yes * Has this patient been hospitalized within the prior 30 days at any hospital? No Coverage Notice Reviewer: [email or web address] Clinton Bailey Notice Issued Date-Time: 09/03/2019 14:50 Notice Type: IM Discharge Notice Notice Delivered To: Patient Relationship to Patient: Letterpress Setter Name: Delivery Method: HAND - Hand Delivered Malissa Days: Prior Verbal Notification: Recipient Understood Notice: Yes Recipient Signature: Yes Med Rec Note Co-signed by Attending: Coverage Notice Comment: Reviewer: [id number] Bailey Notice Issued Date-Time: 09/03/2019 14:50 Notice Type: Patient Choice Letter Notice Delivered To: Patient Relationship to Patient: Letterpress Setter Name: Delivery Method: HAND - Hand Delivered Malissa Days: Prior Verbal Notification: Recipient Understood Notice: Yes Recipient Signature: Yes Med Rec Note Co-signed by Attending: Coverage Notice Comment: curtis with [facility] Last DP export: 09/03/19 2:05 p Patient Name: HUMA FIELDS Page 25203 at 1311 All edits/amendments must be made on the electronic document DICTATION DATE: 09/04/19 1311 VOLLEYBALL ASSISTANT COACH: EDIS 09/04/19 1311 RPT#: [id number] DC DATE:09/04/19 STATUS: DIS IN [facility] [address] [place] [address] END OF REPORT
== END 2019-09-04 12:28 | disposition home or self-care (01) | DRG 291 ==
LOC: D.ER 09:46 → D.MS 12:39
PROVIDERS: Emergency Medicine; Family Medicine; Internal Medicine Nephrology; ADMIT Family Medicine; ATTEND Family Medicine
DX: I13.0 Hypertensive heart and chronic kidney disease with heart failure and stage 1 through stage 4 chronic kidney disease, or unspecified chronic kidney disease (principal); I50.23 Acute on chronic systolic (congestive) heart failure; J96.21 Acute and chronic respiratory failure with hypoxia; J96.22 Acute and chronic respiratory failure with hypercapnia; E87.1 Hypo-osmolality and hyponatremia; N17.9 Acute kidney failure, unspecified; Z68.43 Body mass index [BMI] 50.0-59.9, adult; J44.1 Chronic obstructive pulmonary disease with (acute) exacerbation; N18.9 Chronic kidney disease, unspecified; E11.22 Type 2 diabetes mellitus with diabetic chronic kidney disease; E11.65 Type 2 diabetes mellitus with hyperglycemia; I25.10 Atherosclerotic heart disease of native coronary artery without angina pectoris; G47.33 Obstructive sleep apnea (adult) (pediatric); K21.9 Gastro-esophageal reflux disease without esophagitis; M19.90 Unspecified osteoarthritis, unspecified site; M54.9 Dorsalgia, unspecified; E87.5 Hyperkalemia; E66.01 Morbid (severe) obesity due to excess calories; I48.0 Paroxysmal atrial fibrillation; K80.20 Calculus of gallbladder without cholecystitis without obstruction; K76.0 Fatty (change of) liver, not elsewhere classified; R16.2 Hepatomegaly with splenomegaly, not elsewhere classified; F32.9 Major depressive disorder, single episode, unspecified; D63.1 Anemia in chronic kidney disease; Z85.3 Personal history of malignant neoplasm of breast

== ENCOUNTER 2019-11-19 11:16 | Emergency (ER) | payer MEDICARE, MEDICAID ==
[~2019-11-19] VITALS: Ht 154.9 cm; Wt 135.0 kg
[2019-11-19 11:20] VITALS: Ht 154.9 cm; Wt 135.0 kg
[2019-11-19] MEDS ORDERED: VIT E (11:39)
[2019-11-19] MEDS ORDERED: VIT D (11:39)
[2019-11-19] MEDS ORDERED: VIT C (11:39)
[2019-11-19 12:15] LABS: BASOPHILS 0.6 % (0-2); EOSINOPHILS 2.7 % (0-7); HEMATOCRIT 38.4 % (36.0-48.0); HEMOGLOBIN 11.7 g/dL (12-16); IMMATURE GRANULOCYTES 0.4 % (0-5); LYMPHOCYTES 22.2 % (15-50); MCH 27.5 pg (26.0-34.0); MCHC 30.5 g/dL (31.0-37.0); MCV 90.4 fL (80.0-100.0); MEAN PLATELET VOLUME 9.8 fL (7.4-10.4); MONOCYTES 8.6 % (2-11); NEUTROPHILS 65.5 % (40-80); RBC 4.25 10x6/uL (4.00-5.40); RDW 15.2 % (11.5-14.5); WBC 4.8 10x3/uL (4.8-10.8)
[2019-11-19 12:16] LABS: PLATELET COUNT 135 10x3/uL (130-400)
[2019-11-19 12:27] LABS: CALC OSMOLALITY 290 mosm/kg (275-300); CALCIUM 9.2 mg/dL (8.5-10.1); CARBON DIOXIDE 33.3 mmol/L (21.0-32.0); CHLORIDE - SERUM 99 mmol/L (98-107); CREATININE - SERUM 1.5 mg/dL (0.6-1.3); POTASSIUM - SERUM 4.3 mmol/L (3.5-5.1); SODIUM 137 mmol/L (136-145); UREA NITROGEN 28 mg/dL (7-18); eGFR NON AFRICAN AMERICAN 36 mL/min (90-120)
[2019-11-19 12:29] LABS: GLUCOSE 298 mg/dL (74-106)
[2019-11-19 12:30] LABS: APTT 39.9 SECONDS (22.8-39.4); INR 1.24 (0.85-1.17); PROTIME 15.5 SECONDS (11.6-15.0)
[2019-11-19 12:42] LABS: ALBUMIN 3.5 g/dL (3.4-5.0); ALKALINE PHOSPHATASE 125 U/L (30-120); ALT (SGPT) 31 U/L (10-68); BILIRUBIN - TOTAL 0.42 mg/dL (0.2-1.3); CKMB 1.5 U/L (0.0-3.6); CREATINE KINASE 79 UL (21-215); MAGNESIUM - SERUM 2.4 mg/dL (1.8-2.4); PROTEIN - SERUM 8.3 g/dL (6.4-8.2); TROPONIN-I < 0.017 ng/mL (0.000-0.060)
[2019-11-19 14:42] VITALS: BP 149/73
== END 2019-11-19 14:42 | disposition home or self-care (01) ==
LOC: D.ER 11:16
PROVIDERS: Family Medicine
DX: R00.2 Palpitations (principal); F41.9 Anxiety disorder, unspecified; I48.20 Chronic atrial fibrillation, unspecified; I11.0 Hypertensive heart disease with heart failure; I50.9 Heart failure, unspecified; E11.9 Type 2 diabetes mellitus without complications; Z79.4 Long term (current) use of insulin; K21.9 Gastro-esophageal reflux disease without esophagitis; J44.9 Chronic obstructive pulmonary disease, unspecified; R06.00 Dyspnea, unspecified; Z99.81 Dependence on supplemental oxygen

== ENCOUNTER 2019-12-12 16:18 | Inpatient (IN) | payer MEDICARE, MEDICAID ==
[~2019-12-12] VITALS: Ht 152.4 cm; Wt 137.4 kg
[~2019-12-12 16:18] MED LIST changes: +VIT C; +VIT D; +VIT E
[2019-12-12 17:21] LABS: BASOPHILS 0.5 % (0-2); EOSINOPHILS 2.2 % (0-7); HEMATOCRIT 27.1 % (36.0-48.0); HEMOGLOBIN 7.9 g/dL (12-16); IMMATURE GRANULOCYTES 0.2 % (0-5); LYMPHOCYTES 18.9 % (15-50); MCH 26.8 pg (26.0-34.0); MCHC 29.2 g/dL (31.0-37.0); MCV 91.9 fL (80.0-100.0); MEAN PLATELET VOLUME 9.3 fL (7.4-10.4); MONOCYTES 11.8 % (2-11); NEUTROPHILS 66.4 % (40-80); RBC 2.95 10x6/uL (4.00-5.40); RDW 15.4 % (11.5-14.5); WBC 6.4 10x3/uL (4.8-10.8)
[2019-12-12 17:24] LABS: PLATELET COUNT 204 10x3/uL (130-400)
[2019-12-12 17:41] LABS: ALBUMIN 3.2 g/dL (3.4-5.0); ANION GAP 9.2 mmol/L (8-16); BILIRUBIN - TOTAL 0.39 mg/dL (0.2-1.3); CALCIUM 8.6 mg/dL (8.5-10.1); CARBON DIOXIDE 35.2 mmol/L (21.0-32.0); CREATININE - SERUM 1.5 mg/dL (0.6-1.3); POTASSIUM - SERUM 4.4 mmol/L (3.5-5.1); PROTEIN - SERUM 7.4 g/dL (6.4-8.2)
[2019-12-12 17:45] VITALS: BP 125/80; BMI 59.2
[2019-12-12 20:00] VITALS: BP 122/53
--- NOTE | 2019-12-12 20:00 | NUR ---
PATIENT RESTING IN BED WATCHING TV. NO S/S OF ACUTE DISTRESS. NO C/O AT THIS TIME. PATIENT IS ON 2L NASAL CANNULA. PATIENT IS A RIGHT ARM RESERVE. PATIENT HAS A LEFT FOREARM D5 1/2 NORMAL SALINE @ 100 ML/HR. IV IS PATENT WITHOUT REDNESS, SWELLING, OR TENDERNESS. PATIENT IS ON TELEMETRY. PATIENT IS UP ADLIB. PATIENT USES A CPAP FROM HOME AT NIGHT. CALL LIGHT WITHIN REACH. WILL CONTINUE TO MONITOR.
[2019-12-12 23:12] LABS: HEMATOCRIT 23.3 % (36.0-48.0)
[2019-12-12 23:15] LABS: HEMOGLOBIN 6.9 g/dL (12-16)
--- NOTE | 2019-12-13 00:30 | NUR ---
PATIENT STARTED ON FIRST UNIT OF PACKED RED BLOOD CELLS @ 0015. VITALS ARE STABLE. NO S/S OF REACTION. CALL LIGHT WITHIN REACH. WILL CONTINUE TO MONITOR.
--- NOTE | 2019-12-13 03:15 | NUR ---
I have reviewed this patient and I concur with the Shift Assessment completed by the Licensed Practical Nurse today this shift.
--- NOTE | 2019-12-13 07:56 | NUR ---
RESTING IN BED, NO DISTRESS NOTED, NPO FOR EGD, CONT TO MONITOR FOR BLEEDING, FAMILY IN ROOM
[2019-12-13 09:14] LABS: ANION GAP 7.6 mmol/L (8-16); CALCIUM 8.2 mg/dL (8.5-10.1); CARBON DIOXIDE 34.7 mmol/L (21.0-32.0); CREATININE - SERUM 1.4 mg/dL (0.6-1.3); MAGNESIUM - SERUM 2.5 mg/dL (1.8-2.4); POTASSIUM - SERUM 4.3 mmol/L (3.5-5.1)
[2019-12-13 09:15] VITALS: BP 94/42
[2019-12-13 09:23] LABS: BASOPHILS 0.6 % (0-2); EOSINOPHILS 3.1 % (0-7); IMMATURE GRANULOCYTES 0.2 % (0-5); LYMPHOCYTES 20.8 % (15-50); MCHC 30.6 g/dL (31.0-37.0); MCV 91.4 fL (80.0-100.0); MEAN PLATELET VOLUME 9.2 fL (7.4-10.4); MONOCYTES 11.8 % (2-11); NEUTROPHILS 63.5 % (40-80); PLATELET COUNT 182 10x3/uL (130-400); RBC 3.36 10x6/uL (4.00-5.40); RDW 15.1 % (11.5-14.5); WBC 5.2 10x3/uL (4.8-10.8)
[2019-12-13 09:35] LABS: HEMOGLOBIN 9.4 g/dL (12-16)
[2019-12-13 09:36] LABS: HEMATOCRIT 30.7 % (36.0-48.0)
[2019-12-13 12:22] LABS: HEMATOCRIT 31.6 % (36.0-48.0); HEMOGLOBIN 9.4 g/dL (12-16)
[2019-12-13 12:36] VITALS: BP 122/61
[2019-12-13 14:24] VITALS: Ht 152.4 cm; Wt 137.4 kg
--- NOTE | 2019-12-13 14:45 | NUR ---
TAKEN TO EGD PER BED,
[2019-12-13 17:01] VITALS: BP 116/67
[2019-12-13 20:00] VITALS: BP 96/36
--- NOTE | 2019-12-13 20:00 | NUR ---
PATIENT RESTING IN BED WITH AT BESIDE. NO S/S OF ACUTE DISTRESS. NO C/O AT THIS TIME. PATIENT HAS LEFT FOREARM IV, D5 1/2 NORMAL SALINE @ 50 ML/HR. IV IS PATENT WITHOUT REDNESS, SWELLLING, OR TENDERNESS. PATIENT IS A RIGHT ARM RESERVE. PATIENT IS ON TELEMETRY: 58 CONTROLLED A-FIB. PATIENT IS UP ADLIB TO THE BATHROOM. CALL LIGHT WITHIN REACH. WILL CONTINUE TO MONITOR.
[2019-12-14] VITALS: BP 108/53
--- NOTE | 2019-12-14 00:53 | NUR ---
I have reviewed this patient and I concur with the Shift Assessment completed by the Licensed Practical Nurse today this shift.
[2019-12-14 04:00] VITALS: BP 112/49
[2019-12-14 06:36] LABS: BASOPHILS 0.3 % (0-2); HEMATOCRIT 31.9 % (36.0-48.0); HEMOGLOBIN 9.5 g/dL (12-16); IMMATURE GRANULOCYTES 0.2 % (0-5); MCH 27.5 pg (26.0-34.0); MCHC 29.8 g/dL (31.0-37.0); MCV 92.5 fL (80.0-100.0); MEAN PLATELET VOLUME 9.8 fL (7.4-10.4); MONOCYTES 13.5 % (2-11); RBC 3.45 10x6/uL (4.00-5.40); RDW 15.5 % (11.5-14.5); WBC 6.4 10x3/uL (4.8-10.8)
[2019-12-14 06:50] LABS: PLATELET COUNT 135 10x3/uL (130-400)
[2019-12-14 06:56] LABS: ANION GAP 8.2 mmol/L (8-16); CALCIUM 8.2 mg/dL (8.5-10.1); CARBON DIOXIDE 32.9 mmol/L (21.0-32.0); CREATININE - SERUM 1.5 mg/dL (0.6-1.3); MAGNESIUM - SERUM 2.3 mg/dL (1.8-2.4); PHOSPHOROUS 3.7 mg/dL (2.5-4.9); POTASSIUM - SERUM 4.1 mmol/L (3.5-5.1)
--- NOTE | 2019-12-14 08:14 | NUR ---
SHE IS SETTING ON THE SIDE OF THE BED TALKING ON HER PHONE. DENIES ANY NEEDS. WEARING 2 LITER NC. THE CALL LIHGT IS WITHIN REACH. HER IS AT THE BEDSIDE. SHE IS WANTING TO GO HOME TODAY.
[2019-12-14 08:32] VITALS: BP 148/65
[2019-12-14 11:41] VITALS: BP 134/43
[2019-12-14 12:00] LABS: HEMATOCRIT 33.3 % (36.0-48.0)
[2019-12-14] MEDS ORDERED: CARAFATE1 G PO (12:11)
[2019-12-14] MEDS ORDERED: PROTONIX40 MG PO (12:12)
--- NOTE | 2019-12-14 12:27 | NUR ---
IV REMOVED, SHE HAS DISCHARGE ORDERS.
--- NOTE | 2019-12-14 14:17 | MORECARE ---
CASE MANAGEMENT DISCHARGE SUMMARY PATIENT: HUMA FIELDS UNIT: [id number] ADM DATE: 12/12/19 AGE: 74 : [birth year] SEX: F ROOM/BED: D.2222 AUTHOR: RE RIVERO PHYSICIAN: REFERRING PHYSICIAN: LAURA WELCH MD DATE OF SERVICE: 12/14/19 Discharge Plan Patient Name: HUMA FIELDS Facility: [facility]:[place] : 1945 Planned Disposition: Anticipated Discharge Date: Discharge Date: Expected LOS: Initial Reviewer: [email or web address] Initial Review Date: 12/12/2019 Generated: 12/14/19 3:16 pm Comments DCP- Discharge Planning Updated by [email or web address]: Gloria Rodriguez on 12/14/19 1:[address] Patient Name: HUMA FIELDS Admission Status: Elective Accout number: [id number] Admission Date: 12-12-2019 : 1945 Admission Diagnosis:OTHER GASTRITIS WITH BLEEDING Attending: MINA Current LOS: 2 Anticipated DC Date: Planned Disposition: Primary Insurance: [facility] MEDICARE SOLUTIONS Discharge Planning Comments: CM met with patient to complete initial dc planning assessment. CM educated patient on the CM role and verbal consent given by patient to complete assessment. Patient lives at home with her family where she is independent with her care. At discharge patient plans to return home and feels this is a safe discharge. She has a ramp at home, Bernardo will be her special events driver home. CM discussed availability of home health, rehab services, and medical equipment. She said that she has a walker, CPAP, O2, Neb at home. She get her stuff from [facility] but states [employer] is going to start taking over her dme. She has [facility] personal care that comes 3 hours a day every day. She denies any other needs. [facility] served and explained. Patient denied known discharge needs at this time. CM will continue to follow and will assist as needed with dc plans/needs. E Learning Coordinator: Gloria Rodriguez Coverage Notice Reviewer: [id number] - Gloria Rodriguez Notice Issued Date-Time: 12/14/2019 14:14 Notice Type: IM Discharge Notice Notice Delivered To: Patient Relationship to Patient: [employer] Groom Name: Delivery Method: HAND - Hand Delivered Malissa Days: Prior Verbal Notification: Recipient Understood Notice: Yes Recipient Signature: Yes Med Rec Note Co-signed by Attending: Coverage Notice Comment: Patient Name: HUMA FIELDS Page [phone] at 1417 All edits/amendments must be made on the electronic document DICTATION DATE: 12/14/191415 STATE'S ATTORNEY: EDIS 12/14/191415 RPT#: [id number] DC DATE: STATUS: ADM IN [facility] [address] [place] [address] END OF REPORT
--- NOTE | 2019-12-14 15:02 | NUR ---
DISCHARGE PAPERWORK GONE OVER WITH, QUESTIONS ANSWERED. TAKEN DOWN TO THE FRONT DOOR VIA WHEELCHAIR.
--- NOTE | 2019-12-15 09:12 | MORECARE ---
CASE MANAGEMENT DISCHARGE SUMMARY PATIENT: HUMA FIELDS UNIT: [id number] ADM DATE: 12/12/19 AGE: 74 : 47 SEX: F ROOM/BED: D.2222 AUTHOR: RE RIVERO PHYSICIAN: REFERRING PHYSICIAN: LAURA WELCH MD DATE OF SERVICE: 12/15/19 Discharge Plan Patient Name: HUMA FIELDS Facility: [facility]:[place] : 1945 Planned Disposition: Anticipated Discharge Date: Discharge Date: 12/14/2019 Expected LOS: Initial Reviewer: [id number] Initial Review Date: 12/12/2019 Generated: 12/15/19 10:11 am Comments DCP- Discharge Planning Updated by [email or web address]: Gloria Rodriguez on 12/14/19 1:[address] Patient Name: HUMA FIELDS Admission Status: Elective Accout number: [id number] Admission Date: 12-12-2019 : 1945 Admission Diagnosis:OTHER GASTRITIS WITH BLEEDING Attending: MINA Current LOS: 2 Anticipated DC Date: Planned Disposition: Primary Insurance: [facility] MEDICARE SOLUTIONS Discharge Planning Comments: CM met with patient to complete initial dc planning assessment. CM educated patient on the CM role and verbal consent given by patient to complete assessment. Patient lives at home with her family where she is independent with her care. At discharge patient plans to return home and feels this is a safe discharge. 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 CM discussed availability of home health, rehab services, and medical equipment. She said that she has a walker, CPAP, O2, Neb at home. She get her stuff from [facility] but states [employer] is going to start taking over her dme. She has [facility] personal care that comes 3 hours a day every day. She denies any other needs. [facility] served and explained. Patient denied known discharge needs at this time. CM will continue to follow and will assist as needed with dc plans/needs. Manager: Gloria Rodriguez Coverage Notice Reviewer: [id number] - Gloria Rodriguez Notice Issued Date-Time: 12/14/2019 14:14 Notice Type: IM Discharge Notice Notice Delivered To: Patient Relationship to Patient: Master Technician Name: Delivery Method: HAND - Hand Delivered Malissa Days: Prior Verbal Notification: Recipient Understood Notice: Yes Recipient Signature: Yes Med Rec Note Co-signed by Attending: Coverage Notice Comment: Last DP export: 12/14/19 1:17 pm Patient Name: HUMA FIELDS Page [phone] at 0912 All edits/amendments must be made on the electronic document DICTATION DATE: 12/15/19910 RESORT DESK CLERK: EDIS 12/15/19910 RPT#: [id number] DC DATE:12/14/19 STATUS: DIS IN [address] [place] [address] END OF REPORT
== END 2019-12-14 15:04 | disposition home or self-care (01) | DRG 378 ==
LOC: D.MS 16:18
PROVIDERS: Family Medicine; Internal Medicine Gastroenterology; ADMIT Family Medicine; ATTEND Family Medicine
PROC: 0DB78ZX Excision of Stomach, Pylorus, Via Natural or Artificial Opening Endoscopic, Diagnostic (ICD-10-PCS; principal; 2019-12-13 15:00)
DX: K29.61 Other gastritis with bleeding (principal); N17.9 Acute kidney failure, unspecified; Z68.43 Body mass index [BMI] 50.0-59.9, adult; D64.9 Anemia, unspecified; J44.9 Chronic obstructive pulmonary disease, unspecified; I10 Essential (primary) hypertension; E11.9 Type 2 diabetes mellitus without complications; I25.10 Atherosclerotic heart disease of native coronary artery without angina pectoris; K21.9 Gastro-esophageal reflux disease without esophagitis; E66.01 Morbid (severe) obesity due to excess calories; M19.90 Unspecified osteoarthritis, unspecified site; F41.9 Anxiety disorder, unspecified; Z85.3 Personal history of malignant neoplasm of breast; K21.0 Gastro-esophageal reflux disease with esophagitis; K44.9 Diaphragmatic hernia without obstruction or gangrene

== ENCOUNTER 2019-12-31 15:45 | Outpatient (CLI) | payer MEDICARE, MEDICAID ==
[2019-12-13 14:24] VITALS: BMI 59.1
[~2019-12-31 15:45] MED LIST changes: +CARAFATE1 G PO
== END 2019-12-31 16:00 | disposition home or self-care (01) ==
LOC: D.MAMMO 15:45
PROVIDERS: ATTEND Family Medicine
DX: Z12.31 Encounter for screening mammogram for malignant neoplasm of breast (principal)

== ENCOUNTER 2020-10-13 11:43 | Emergency (ER) | payer MEDICARE, MEDICAID ==
[~2020-10-13] VITALS: Ht 152.4 cm; Wt 141.8 kg
[2020-10-13 12:18] VITALS: Ht 152.4 cm; Wt 141.8 kg
[2020-10-13 13:08] LABS: BASOPHILS 0.5 % (0-2); EOSINOPHILS 2.4 % (0-7); HEMATOCRIT 33.9 % (36.0-48.0); IMMATURE GRANULOCYTES 0.2 % (0-5); LYMPHOCYTE ABS# 0.93 10x3/uL (1.18-3.74); LYMPHOCYTES 14.1 % (15-50); MCH 25.6 pg (26.0-34.0); MCHC 29.5 g/dL (31.0-37.0); MCV 86.9 fL (80.0-100.0); MEAN PLATELET VOLUME 9.6 fL (7.4-10.4); MONOCYTES 10.3 % (2-11); NEUTROPHIL ABS# 4.79 10x3/uL (1.56-6.13); NEUTROPHILS 72.5 % (40-80); PLATELET COUNT 147 10x3/uL (130-400); RDW 15.9 % (11.5-14.5); WBC 6.6 10x3/uL (4.8-10.8)
[2020-10-13 13:16] LABS: CALC OSMOLALITY 282 mosm/kg (275-300); CALCIUM 9.1 mg/dL (8.5-10.1); CARBON DIOXIDE 36.8 mmol/L (21.0-32.0); CHLORIDE - SERUM 101 mmol/L (98-107); CREATININE - SERUM 1.4 mg/dL (0.6-1.3); POTASSIUM - SERUM 4.3 mmol/L (3.5-5.1); SODIUM 140 mmol/L (136-145); UREA NITROGEN 30 mg/dL (7-18); eGFR NON AFRICAN AMERICAN 39 mL/min (90-120)
[2020-10-13 13:17] LABS: GLUCOSE 60 mg/dL (74-106)
[2020-10-13 13:29] LABS: ALBUMIN 3.1 g/dL (3.4-5.0); ALKALINE PHOSPHATASE 103 U/L (30-120); ALT (SGPT) 28 U/L (10-68); BILIRUBIN - TOTAL 0.47 mg/dL (0.2-1.3); PRO BNP 1812 pg/mL (0-125); PROTEIN - SERUM 7.9 g/dL (6.4-8.2)
[2020-10-13 13:30] LABS: TROPONIN-I < 0.017 ng/mL (0.000-0.060)
[2020-10-13 14:56] VITALS: BP 147/57
== END 2020-10-13 15:42 | disposition home or self-care (01) ==
LOC: D.ER 11:43
PROVIDERS: Emergency Medicine
DX: I11.0 Hypertensive heart disease with heart failure (principal); I50.9 Heart failure, unspecified; E11.9 Type 2 diabetes mellitus without complications; J44.9 Chronic obstructive pulmonary disease, unspecified; K21.9 Gastro-esophageal reflux disease without esophagitis; Z79.84 Long term (current) use of oral hypoglycemic drugs